=== PATIENT | female | born 1955 | race Caucasian/White ===

== ENCOUNTER 2016-12-19 17:01 | Outpatient (CLI) ==
[2015-07-23 10:23] VITALS: BMI 51.5
== END 2016-12-19 17:02 | disposition home or self-care (01) ==
LOC: AMBL 17:01
PROVIDERS: ATTEND Emergency Medicine
DX: R06.9 Unspecified abnormalities of breathing (principal); M54.5 Low back pain; R00.0 Tachycardia, unspecified; S09.90XA Unspecified injury of head, initial encounter; W19.XXXA Unspecified fall, initial encounter

== ENCOUNTER 2017-01-07 11:43 | Outpatient (CLI) ==
[2015-07-23 10:23] VITALS: BMI 51.5
[2017-01-07 12:54] LABS: BASOPHILS # (AUTO) 0.1 K/uL (0-0.2); BASOPHILS % (AUTO) 1.4 % (0.0-3.0); EOSINOPHILS # (AUTO) 0.2 K/ul (0.0-0.7); EOSINOPHILS % (AUTO) 2.7 % (0.0-7.0); HEMATOCRIT 36.9 % (37.0-47.0); HEMOGLOBIN 12.8 g/dl (12.0-16.0); IMMATURE GRANULOCYTE % (AUTO) 0.5 % (0.0-5.0); LYMPHOCYTES % (AUTO) 34.6 (10.0-50.0); MEAN CORPUSCULAR HEMOGLOBIN 31.6 pg (27.0-31.0); MEAN CORPUSCULAR HGB CONC 34.7 (31.8-35.4); MEAN CORPUSCULAR VOLUME 91.1 fl (81.0-99.0); MONOCYTES # (AUTO) 0.4 K/uL (0.4-2.0); MONOCYTES % (AUTO) 7.2 (0-10); NEUTROPHILS # (AUTO) 3.1 K/ul (2.0-6.9); NEUTROPHILS % (AUTO) 53.6; PLATELET COUNT 309 10^3/uL (140-440); RED BLOOD COUNT 4.05 10^6/ul (4.20-5.40); WHITE BLOOD COUNT 5.86 K/ul (4.6-10.2)
[2017-01-07 13:36] LABS: ALANINE AMINOTRANSFERASE 18 U/L (12-78); ALBUMIN 3.1 g/dL (3.4-5.0); ALBUMIN/GLOBULIN RATIO 0.79; ALKALINE PHOSPHATASE 169 U/L (53-141); ASPARTATE AMINO TRANSFERASE 14 U/L (15-37); BLOOD UREA NITROGEN 14 mg/dL (7-18); BUN/CREATININE RATIO 16.47; CALCIUM 9.9 mg/dL (8.2-10.2); CARBON DIOXIDE 23 mmol/L (23-31); CHLORIDE 98 mmol/L (98-107); CHOL/HDL RATIO 8.6 (4.5-5.5); CHOLESTEROL 360 mg/dL (0-200); CREATININE 0.85 mg/dL (0.60-1.30); GLUCOSE 352 mg/dL (82-115); HDL CHOLESTEROL 42 mg/dL (35-80); SODIUM 135 mmol/L (136-145)
[2017-01-07 13:38] LABS: TRIGLYCERIDES 1335 mg/dL (30-150)
== END 2017-01-07 11:44 | disposition home or self-care (01) ==
LOC: LAB 11:43
PROVIDERS: ATTEND Nurse Practitioner Family
DX: E11.9 Type 2 diabetes mellitus without complications (principal); E78.5 Hyperlipidemia, unspecified; F32.9 Major depressive disorder, single episode, unspecified; G89.29 Other chronic pain
CPT/HCPCS: 36415; 80053; 80061; 83036; 84443; 85025

== ENCOUNTER 2017-02-16 07:30 | Emergency (ER) ==
[2017-02-16 07:40] VITALS: BP 148/81; TEMP 98.2
--- NOTE | 2017-02-16 08:00 | ED.PDOC ---
General ED Provider: Dr. YEISON DOLAN JR Chief Complaint: Respiratory Complaint Stated Complaint: COUGH, DIFFICULTY HEARING, CHEST HEAVINESS, HEADACHE[End] symptoms for 1 month 98.2 83 18 98% 148/81 4/10 [ End ] STATES HAVING DIFFICULTY HEARING AND HAS PRESSURE IN CHEST.[ End ]left back pain and rales note fibromyalgia ill for 2 months not seen PMD for 3 months Time Seen by Physician: 08:00 Mode of Arrival: Walk-In Information Source: Patient Exam Limitations: No limitations Primary [facility] and Triage Documentation Reviewed and Agree: No Review of Systems - Review Of Systems Constitutional: Reports: No symptoms Eyes: Reports: No symptoms Ears, Nose, Mouth, Throat: Reports: Ear pain Respiratory: Reports: Cough (moderate uri symptoms, white sputum) Cardiac: Reports: Chest pain (heaviness) GI: Reports: No symptoms : Reports: No symptoms Musculoskeletal: Reports: No symptoms Skin: Reports: No symptoms Neurological: Reports: Headache Endocrine: Reports: No symptoms Hematologic/Lymphatic: Reports: No symptoms All Other Systems: Other Past Medical History - Past Medical History Previously Healthy: No Endocrine: Reports: DM 2, Dyslipidemia Cardiovascular: Reports: Hypertension Respiratory: Reports: None Hematological: Reports: None Gastrointestinal: Reports: Other (IBS) Genitourinary: Reports: None Neuro/Psych: Reports: None Musculoskeletal: Reports: Other Cancer: Reports: None Last Menstrual Period: N/A Other Pertinent Past Medical History: fibromyalgia, D&C 10yrs ago - Surgical History General Surgical History: Reports: Unknown - Family History Family History: Reports: Unknown - Social History Smoking Status: Never smoker Hx Substance Use: No Alcohol Screening: None Physical Exam - Physical Exam Appearance: Ill-appearing Ill-appearing: Mild Pain Distress: Mild Eyes: MONO, EOMI, Conjunctiva clear ENT: Ears normal, Nose normal, Oropharynx normal Neck: Supple Respiratory: Breath sounds diminished, Rhonchi Cardiovascular: RRR, Pulses normal, No rub, No murmur GI/: Soft, Nontender, No masses, Bowel sounds normal, No Organomegaly Musculoskeletal: Normal strength, ROM intact, No edema, No calf tenderness Skin: Warm, Dry, Normal color Neurological: Sensation intact, Motor intact, Reflexes intact, Cranial nerves intact, Alert, Oriented Psychiatric: Affect appropriate, Mood appropriate Critical Care Note - Critical Care Note Total Time (mins): 0 Course - Course Hematology/Chemistry: 02/16/17 09:10 02/16/17 09:10 Orders, Labs, Meds: Lab Review 02/16/17 09:10 WBC 6.86 RBC 3.84 L Hgb 12.1 Hct 35.3 L MCV 91.9 MCH 31.5 H MCHC 34.3 RDW Coeff of Kait 13.4 Plt Count 269 Immature Gran % (Auto) 0.6 Neut % (Auto) 56.4 Lymph % (Auto) 30.3 Lincoln % (Auto) 5.7 Eos % (Auto) 5.8 Baso % (Auto) 1.2 Immature Gran # (Auto) 0.0 Neut # 3.9 Lymph # 2.1 Lincoln # 0.4 Eos # 0.4 Baso # 0.1 Sodium 137 Potassium 4.0 Chloride 104 Carbon Dioxide 24 Anion Gap 13.0 BUN 17 Creatinine 0.88 Estimated GFR (MDRD) 65.00 BUN/Creatinine Ratio 19.31 Glucose 262 H Lactic Acid 16.8 Calcium 9.6 Total Bilirubin 0.62 AST 9 L ALT 18 Alkaline Phosphatase 120 Total Creatine Kinase 52 Troponin I < 0.0100 B-Natriuretic Peptide 23 Total Protein 6.9 Albumin 3.3 L Globulin 3.6 Albumin/Globulin Ratio 0.92 Procalcitonin < 0.05 Orders Category Date Time Status EKG-(ED ONLY) Stat CARDIO 02/16/17 08:45 Completed ED PRODUCTION CLOTH CUTTER APPLIED .ONCE EMERGENCY 02/16/17 08:45 Active ED IV/MEDIPORT/POWERPORT .ONCE EMERGENCY 02/16/17 08:45 Active B-TYPE NATRIURETIC PEPTIDE Stat LAB 02/16/17 09:10 Completed BLOOD CULTURE Stat LAB 02/16/17 09:10 Received CBC W/ AUTO DIFF Stat LAB 02/16/17 09:10 Completed COMPREHENSIVE METABOLIC PANEL Stat LAB 02/16/17 09:10 Completed CREATINE KINASE Stat LAB 02/16/17 09:10 Completed LACTIC ACID Stat LAB 02/16/17 09:10 Completed PROCALCITONIN Stat LAB 02/16/17 09:10 Completed TROPONIN I Stat LAB 02/16/17 09:10 Completed 0.9 % Sodium Chloride [Saline Flush] MEDS 02/16/17 08:45 Discontinued 1 syr IVF PRN PRN Insulin Regular, Human [Humulin R] MEDS 02/16/17 10:12 Discontinued 6 unit SUBCUT ONCE STA Methylprednisolone Sod Succ/Pf [Solu-Medrol 125 mg] MEDS 02/16/17 10:01 Discontinued 125 mg IM ONCE STA CHEST, 1V AP ONLY Stat RADS 02/16/17 08:45 Completed Medications Discontinued Medications Generic Name Dose Route Start Last Admin Trade Name Freq PRN Reason Stop Dose Admin Insulin Human Regular 6 unit 02/16/17 10:12 02/16/17 10:19 Humulin R SUBCUT 02/16/17 10:13 6 unit ONCE STA Administration Methylprednisolone Sodium Succinate 125 mg 02/16/17 10:01 02/16/17 10:11 Solu-Medrol 125 Mg IM 02/16/17 10:02 125 mg ONCE STA Administration Sodium Chloride 1 syr 02/16/17 08:45 Saline Flush IVF PRN PRN To flush IV Vital Signs: Temp Pulse Resp BP Pulse Ox 02/16/17 07:35 98.2 F 83 18 148/81 H 98 Departure - Departure Time of Disposition: 10:03 Disposition: HOME SELF-CARE Discharge Problem: URTI (acute upper respiratory infection) Instructions: Upper Respiratory Infection (ED) Condition: Good Pt referred to PMD for follow-up: Yes Additional Instructions: antibiotic until gone cough medication as needed return if fever over 101.0 or if chest pain recheck PMD one week sooner if not improving please take your insulin as directed-this is first priority- you must take care of your self in order to take care of others Prescriptions: Sulfamethoxazole/Trimethoprim [Bactrim Ds 800/160 mg] 1 tab PO Q12HR #14 tablet Guaifenesin/Codeine Phosphate [Robitussin AC Syrup] 10 ml PO Q6H PRN #240 ml PRN Reason: Cough Allergies/Adverse Reactions: Allergies latex Allergy (Mild, Verified 02/16/17 07:33) hives naproxen [From Naprosyn] Allergy (Verified 02/16/17 07:33) hives Home Medications: Ambulatory Orders Guaifenesin/Codeine Phosphate [Robitussin AC Syrup] 10 ml PO Q6H PRN #240 ml 10/23 Sulfamethoxazole/Trimethoprim [Bactrim Ds 800/160 mg] 1 tab PO Q12HR #14 tablet 02/16/17
[2017-02-16 08:30] VITALS: BMI 47.7
--- NOTE | 2017-02-16 09:03 | DI ---
EXAM: CHEST FRONTAL VIEW HISTORY: Chest pain. COMPARISON: 05/31/2011 FINDINGS: Heart size within normal limits. Limited exam secondary to patient position, portable te chnique and body habitus. Discoid density over the medial right base probably represents superimpos ed soft tissues. No gross evidence of consolidated pneumonia or vascular congestion. No acute bony finding. IMPRESSION: No obvious acute process.
[2017-02-16 09:28] LABS: BASOPHILS # (AUTO) 0.1 K/uL (0-0.2); BASOPHILS % (AUTO) 1.2 % (0.0-3.0); EOSINOPHILS # (AUTO) 0.4 K/ul (0.0-0.7); EOSINOPHILS % (AUTO) 5.8 % (0.0-7.0); HEMATOCRIT 35.3 % (37.0-47.0); HEMOGLOBIN 12.1 g/dl (12.0-16.0); IMMATURE GRANULOCYTE % (AUTO) 0.6 % (0.0-5.0); LYMPHOCYTES # (AUTO) 2.1 K/uL (0.60-3.4); LYMPHOCYTES % (AUTO) 30.3 (10.0-50.0); MEAN CORPUSCULAR HEMOGLOBIN 31.5 pg (27.0-31.0); MEAN CORPUSCULAR HGB CONC 34.3 (31.8-35.4); MEAN CORPUSCULAR VOLUME 91.9 fl (81.0-99.0); MONOCYTES # (AUTO) 0.4 K/uL (0.4-2.0); MONOCYTES % (AUTO) 5.7 (0-10); NEUTROPHILS # (AUTO) 3.9 K/ul (2.0-6.9); NEUTROPHILS % (AUTO) 56.4; PLATELET COUNT 269 10^3/uL (140-440); RED BLOOD COUNT 3.84 10^6/ul (4.20-5.40); WHITE BLOOD COUNT 6.86 K/ul (4.6-10.2)
[2017-02-16 09:55] LABS: ALANINE AMINOTRANSFERASE 18 U/L (12-78); ALBUMIN 3.3 g/dL (3.4-5.0); ALBUMIN/GLOBULIN RATIO 0.92; ALKALINE PHOSPHATASE 120 U/L (53-141); ASPARTATE AMINO TRANSFERASE 9 U/L (15-37); BILIRUBIN,TOTAL 0.62 mg/dL (0.00-1.20); BLOOD UREA NITROGEN 17 mg/dL (7-18); BUN/CREATININE RATIO 19.31; CALCIUM 9.6 mg/dL (8.2-10.2); CARBON DIOXIDE 24 mmol/L (23-31); CHLORIDE 104 mmol/L (98-107); CREATINE KINASE 52 U/L; CREATININE 0.88 mg/dL (0.60-1.30); GLUCOSE 262 mg/dL (82-115); SODIUM 137 mmol/L (136-145); TOTAL PROTEIN 6.9 g/dL (5.8-8.1)
[2017-02-16] MEDS ORDERED: SOLU-MEDROL 125 MG IM STA (10:01)
[2017-02-16] MEDS ORDERED: HUMULIN R SUBCUT STA (10:12)
== END 2017-02-16 10:28 | disposition home or self-care (01) ==
LOC: ED 07:30
DX: J06.9 Acute upper respiratory infection, unspecified (principal); R07.89 Other chest pain; E11.9 Type 2 diabetes mellitus without complications; I10 Essential (primary) hypertension
CPT/HCPCS: 36415; 80053; 82550; 83605; 83880; 84145; 84484; 85025; 87040; 93005; 93010; 96372; 99283

== ENCOUNTER 2017-04-13 17:47 | Outpatient (CLI) | END 2017-04-13 17:48 | disposition home or self-care (01) | LOC: AMBL 17:47 | PROVIDERS: ATTEND Internal Medicine | DX: R07.9 Chest pain, unspecified (principal); F41.9 Anxiety disorder, unspecified ==

== ENCOUNTER 2017-04-14 11:52 | Outpatient (CLI) ==
[2017-04-14 14:42] LABS: ALBUMIN 3.7 g/dL (3.4-5.0); ALBUMIN/GLOBULIN RATIO 0.95; ANION GAP 14.2; BILIRUBIN,TOTAL 0.7 mg/dL (0.00-1.20); BUN/CREATININE RATIO 17.58; CALCIUM 10.1 mg/dL (8.2-10.2); CHOL/HDL RATIO 4.5 (4.5-5.5); CREATININE 0.91 mg/dL (0.60-1.30); POTASSIUM 4.2 mmol/L (3.5-5.10); TOTAL PROTEIN 7.6 g/dL (5.8-8.1)
== END 2017-04-14 11:53 | disposition home or self-care (01) ==
LOC: LAB 11:52
PROVIDERS: ATTEND Nurse Practitioner Family
DX: E11.9 Type 2 diabetes mellitus without complications (principal); E78.5 Hyperlipidemia, unspecified
CPT/HCPCS: 36415; 80053; 80061; 83036

== ENCOUNTER 2017-09-21 12:50 | Outpatient (CLI) ==
[2017-09-21 12:57] LABS: BASOPHILS # (AUTO) 0.1 K/uL (0-0.2); EOSINOPHILS # (AUTO) 0.1 K/ul (0.0-0.7); EOSINOPHILS % (AUTO) 2.3 % (0.0-7.0); HEMATOCRIT 37.8 % (37.0-47.0); HEMOGLOBIN 13.2 g/dl (12.0-16.0); IMMATURE GRANULOCYTE % (AUTO) 0.5 % (0.0-5.0); LYMPHOCYTES # (AUTO) 1.9 K/uL (0.60-3.4); LYMPHOCYTES % (AUTO) 32.2 (10.0-50.0); MEAN CORPUSCULAR HGB CONC 34.9 (31.8-35.4); MEAN CORPUSCULAR VOLUME 91.5 fl (81.0-99.0); MONOCYTES # (AUTO) 0.3 K/uL (0.4-2.0); MONOCYTES % (AUTO) 4.7 (0-10); NEUTROPHILS # (AUTO) 3.4 K/ul (2.0-6.9); NEUTROPHILS % (AUTO) 59.3; PLATELET COUNT 338 10^3/uL (140-440); RED BLOOD COUNT 4.13 10^6/ul (4.20-5.40); WHITE BLOOD COUNT 5.75 K/ul (4.6-10.2)
[2017-09-21 13:13] LABS: ALBUMIN 3.6 g/dL (3.4-5.0); ALBUMIN/GLOBULIN RATIO 0.9; ANION GAP 13.8; BILIRUBIN,TOTAL 0.68 mg/dL (0.00-1.20); CALCIUM 10.3 mg/dL (8.2-10.2); CHOL/HDL RATIO 5.6 (4.5-5.5); CREATININE 0.92 mg/dL (0.60-1.30); POTASSIUM 3.8 mmol/L (3.5-5.10); TOTAL PROTEIN 7.6 g/dL (5.8-8.1)
== END 2017-09-21 12:51 | disposition home or self-care (01) ==
LOC: LAB 12:50
PROVIDERS: ATTEND Nurse Practitioner Family
DX: E78.1 Pure hyperglyceridemia (principal); E78.5 Hyperlipidemia, unspecified; E11.9 Type 2 diabetes mellitus without complications
CPT/HCPCS: 36415; 80053; 80061; 83036; 85025

== ENCOUNTER 2017-11-29 14:02 | Outpatient (CLI) | END 2017-11-29 14:03 | disposition home or self-care (01) | LOC: LAB 14:02 | PROVIDERS: ATTEND Nurse Practitioner Family | DX: E78.5 Hyperlipidemia, unspecified (principal); E78.1 Pure hyperglyceridemia; E11.9 Type 2 diabetes mellitus without complications | CPT/HCPCS: 36415; 80053; 80061; 83036; 85025 ==

== ENCOUNTER 2018-01-10 11:11 | Outpatient (CLI) ==
--- NOTE | 2018-01-11 10:15 | MRI ---
EXAM: Thoracic spine MRI without contrast. HISTORY: Thoracic spine pain. COMPARISON: Chest radiograph 05/31 2011. TECHNIQUE: Multiplanar, multisequence MR images were acquired of the thoracic spine without contrast . FINDINGS: The thoracic cord is without syrinx. Evaluation for abnormal cord signal is limited by de creased spatial and contrast resolution. The cord is anteriorly displaced and posteriorly flattened by a localized intradural extramedullary fluid collection in the dorsal thecal sac at T7. Canal diame ter is developmentally narrow. There is mild thoracolumbar scoliosis, convex right at T5-6 and conve x left at T11-12. There is mild lower thoracic kyphosis centered at T11-12 due to mild chronic anter ior wedging of the T11-L1 vertebra. There is also minor chronic anterior wedging of T7 vertebra with 2 mm left posterior cortical buckling and minor chronic anterior wedging of the T8-T10 vertebra. Th ere is desiccation of the thoracic intervertebral discs, mild endplate irregularity and chronic Schmo rl's nodes from T4 through T12. Bridging ventral and lateral osteophytes are present in the thoracic spine and these are greatest right laterally from T4-5 to T8-9 and at T10-11 and left laterally at T 6-7 and T9-10. These findings are suggestive of diffuse idiopathic skeletal hyperostosis or senile hy perostosis. The counting sagittal images demonstrate mild cervical degenerative spondylosis. There are no paravertebral masses. The partially visualized liver is elongated and measures at least 18 cm in length. The spleen and upper poles of both kidneys are unremarkable. T1-2: The intervertebral disc is normal. There is no central canal stenosis or foraminal stenosis. There is a small heterogeneous T1, bright T2 signal focus in the right superior T1 vertebra. This h as bright STIR signal and may represent an atypical benign intraosseous hemangioma. T2-3: The intervertebral disc is normal. T3-4: The intervertebral disc is normal. There is left greater than right facet hypertrophy without foraminal stenosis. T4-5. The intervertebral disc is normal. Bilateral facet hypertrophy is present. There is moderate right and mild to moderate left neural foraminal stenosis. T5-6: There is a minor dorsal spondylotic disc bulge that is asymmetric to the right which mildly ef faces the right anterior subarachnoid space. Bilateral facet hypertrophy is present and there is mil d left and moderate right neural foraminal stenosis. T6-7: There is a dorsal spondylotic disc bulge that mildly indents the thoracic cord which is anteri vanessa displaced in the thecal sac. Mild left facet hypertrophy is present. There is mild right murtaza inal stenosis. There is no central canal stenosis. AP diameter of the thecal sac is 10.2 mm. T7-8: There is a chronic mild anterior wedge compression deformity of T7 with 2 mm retropulsion of t he left paramidline posterior cortex from the mid vertebral level to the inferior endplate and T7-8 l evel. This moderately indents the left paramidline ventral cord which is anteriorly displaced and po steriorly flattened by a localized dorsal intradural extramedullary fluid collection. There is no ce ntral canal stenosis or foraminal stenosis. T8-9: There is a minor dorsal spondylotic ridge that is asymmetric to the right that minimally effac es the right lateral recess. Left facet hypertrophy is present. There is mild right and mild to mod erate left neural foraminal stenosis. T9-10: There is a minor spondylotic disc bulge and mild left foraminal stenosis. T10-11: There is a minor right posterior disc osteophyte complex associated with mild right cord fla ttening and right facet hypertrophy. There is no central canal stenosis or foraminal stenosis. T11-12: There is a dorsal spondylotic ridge that effaces the ventral thecal sac and is associated wi th mild cord flattening. There is no central canal stenosis. AP diameter of the thecal sac is 11.6 mm. T12-L1: There is a minor posterior disc bulge. There is no central canal stenosis or foraminal sten osis. IMPRESSION: 1. Mild lower thoracic kyphosis centered at T11-12 due to mild chronic anterior wedging of the T11 t hrough L1 vertebra. No acute compression fractures. 2. Minor chronic anterior wedging T7 with 2 mm left posterior cortical buckling that moderately inde nts the left ventral cord which is anteriorly displaced and posteriorly flattened by a localized dors al intradural extramedullary fluid collection. These findings may reflect sequela from previous traum a and the anterior cord displacement may be due to an anterior cord herniation or arachnoid web. An intradural extramedullary arachnoid cyst is considered less likely. 3. Mild thoracic degenerative spondylosis with endplate changes, Schmorl's nodes and bridging carrie lateral endplate osteophytes. This is suggestive of diffuse idiopathic skeletal hyperostosis or ernee le hyperostosis. 4. No thoracic disc herniations or central canal stenosis.
== END 2018-01-10 11:12 | disposition home or self-care (01) ==
LOC: RAD 11:11
PROVIDERS: ATTEND Nurse Practitioner Family
DX: M54.6 Pain in thoracic spine (principal); W19.XXXA Unspecified fall, initial encounter

== ENCOUNTER 2018-01-14 10:18 | Outpatient (CLI) | END 2018-01-14 10:19 | disposition short-term general hospital (02) | LOC: AMBL 10:18 | PROVIDERS: ATTEND Emergency Medicine | DX: S01.81XA Laceration without foreign body of other part of head, initial encounter (principal); M25.551 Pain in right hip; M25.562 Pain in left knee; S81.002A Unspecified open wound, left knee, initial encounter; W01.0XXA Fall on same level from slipping, tripping and stumbling without subsequent striking against object, initial encounter ==

== ENCOUNTER 2018-03-06 07:05 | Outpatient (CLI) ==
--- NOTE | 2018-03-06 10:16 | MRI ---
EXAM: Brain MRI with and without contrast. HISTORY: Meningioma. COMPARISON: Brain MRI 09/12/2013. TECHNIQUE: Multiplanar, multisequence MR images were acquired of the brain before and after administ ration of intravenous contrast. FINDINGS: The midline structures are central and the craniocervical junction is unremarkable. There is mild enlargement of the lateral and third ventricles and sylvian fissures and mild prominence of the sulci consistent with age related involutional changes. There is an intermediate T1 and T2 signal 8.2 mm AP by 8.3 mm TX by 4.8 mm CC enhancing extra-axial mass overlying the anterior left frontal l obe at the convexity. This is most consistent with a meningioma which indents the anterior left fron swetha lobe without edema. There is no restricted ricted diffusion to suggest acute hypoperfusion or infarction. There is a thi n band of periventricular T2/FLAIR hyperintensity and small T2 / FLAIR hyperintensities are present i n the supratentorial white matter, both thalami and momo compatible with moderate supratentorial and minor pontine chronic ischemic small vessel disease. There is no abnormal dark gradient echo signal. A chronic lacuna is present in the anterior left basal ganglia and a chronic lacuna is present in t he right posterior internal capsule at the site of the previously noted infarct on the 09/12/2013 bra in MRI. A chronic lacuna or dilated perivascular spaces present in the dorsal right thalamus and ther e is a dilated perivascular space in the dorsal left thalamus. After administration of gadolinium, n o enhancing masses are identified in the brain parenchyma. The corpus callosum is normal in size and configuration. The pituitary gland is low normal size with a concave anterior superior border. The infundibulum is midline. There are no intraorbital masses. Hyperostosis frontalis interna is present. Paranasal sinuses, mid dle ears of mastoid air cells are clear. There is no abnormal contrast enhancement in the internal a uditory canals or labyrinthine structures. Flow voids are present in the major intracranial arteries and dural venous sinuses. IMPRESSION: 1. 8.2 mm x 0.3 mm 4.8 mm left frontal convexity meningioma. 2. Age related involutional changes and moderate supratentorial and minor pontine chronic ischemic s mall vessel disease. 3. Chronic lacunes anterior left basal ganglia and posterior right internal capsule. 4. No intracranial hemorrhage or acute cerebral infarct.
== END 2018-03-06 07:06 | disposition home or self-care (01) ==
LOC: RAD 07:05
PROVIDERS: ATTEND Neurological Surgery
DX: D32.9 Benign neoplasm of meninges, unspecified (principal); M54.5 Low back pain; G89.29 Other chronic pain
CPT/HCPCS: 36415; 80048

== ENCOUNTER 2018-03-13 08:54 | Outpatient (CLI) | END 2018-03-13 08:55 | LOC: AMBL 08:54 | PROVIDERS: ATTEND Internal Medicine | DX: Z74.2 Need for assistance at home and no other household member able to render care (principal); W19.XXXA Unspecified fall, initial encounter ==

== ENCOUNTER 2018-03-13 13:49 | Outpatient (CLI) | END 2018-03-13 13:50 | LOC: AMBL 13:49 | PROVIDERS: ATTEND Internal Medicine | DX: R53.1 Weakness (principal); R52 Pain, unspecified; R29.6 Repeated falls; S00.11XD Contusion of right eyelid and periocular area, subsequent encounter; S62.101D Fracture of unspecified carpal bone, right wrist, subsequent encounter for fracture with routine healing; W19.XXXA Unspecified fall, initial encounter ==

== ENCOUNTER 2018-06-27 10:38 | Outpatient (CLI) | END 2018-06-27 10:39 | disposition home or self-care (01) | LOC: RHC-LAB 10:38 | PROVIDERS: ATTEND Nurse Practitioner Family | DX: E11.9 Type 2 diabetes mellitus without complications (principal); F41.8 Other specified anxiety disorders; E78.5 Hyperlipidemia, unspecified; E78.1 Pure hyperglyceridemia | CPT/HCPCS: 36415; 80053; 80061; 83037; 84443; 85025 ==

== ENCOUNTER 2018-12-05 08:10 | Outpatient (CLI) | END 2018-12-05 08:11 | disposition home or self-care (01) | LOC: RHC-LAB 08:10 | PROVIDERS: ATTEND Nurse Practitioner Family | DX: E11.9 Type 2 diabetes mellitus without complications (principal); E78.5 Hyperlipidemia, unspecified; E78.1 Pure hyperglyceridemia; K58.9 Irritable bowel syndrome, unspecified | CPT/HCPCS: 36415; 80053; 80061; 83036; 85025 ==

== ENCOUNTER 2019-02-27 11:02 | Outpatient (CLI) | END 2019-02-27 11:03 | disposition home or self-care (01) | LOC: RHC-LAB 11:02 | PROVIDERS: ATTEND Nurse Practitioner Family | DX: E11.9 Type 2 diabetes mellitus without complications (principal); E78.5 Hyperlipidemia, unspecified | CPT/HCPCS: 36415; 80053; 80061; 83036 ==

== ENCOUNTER 2022-07-05 08:53 | Inpatient (IN) ==
[2022-07-05 09:13] VITALS: BMI 46.8
--- NOTE | 2022-07-05 09:42 | ED.PDOC ---
General ED Provider: Dr. JOSH LANE Chief Complaint: Hip Pain/Injury Stated Complaint: Both hips hurting from recent falls. Says she is unable to bear weight. Lives alone. T2DM. Obesity. Time Seen by Provider: 07/05/22 09:10 Mode of Arrival: Ambulance Information Source: Patient and EMT Exam Limitations: No limitations Primary Care Provider: DUSTIN HAYS APRN Nursing and Triage Documentation Reviewed and Agree: Yes Does patient meet sepsis criteria?: No System Inflammatory Response Syndrome: Not Applicable Sepsis Protocol: For patient's 13 years and over: Temp is 96.8 and below OR 101 and greater Pulse >90 BPM Resp >20/minute Acutely Altered Mental Status Are patient's symptoms suggestive of a new infection, such as: -Pneumonia -Skin, Soft Tissue -Endocarditis -UTI -Bone, Joint Infection -Implantable Device -Acute Abdominal Infection -Wound Infection -Meningitis -Blood Stream Catheter Infection -Unknown Musculoskeletal Complaint Exam Hip/Pelvis Complaint/Exam Location of Pain: Reports Right, Left and Pelvis Mechanism of Injury: Reports Trauma Onset/Duration: at least two falls recently, including today Symptoms Are: Still present Initial Severity: Moderate Current Severity: Moderate Location: Reports Diffuse Character: Reports Dull and Aching Aggravating: Reports Movement and Weight bearing Alleviating: Reports Rest Associated Signs and Symptoms: Denies Swelling, Redness, Bruising, Fever, Weakness, Dizziness, Syncope, Abdominal pain or Knee pain Related History: Reports Similar episode Able to Bear Weight: No Septic Arthritis Risk Factors: Reports None Related Surgical History: Reports None Tenderness: Present Right and Left Range of Motion Limited In: Present Flexion, Extension, Abduction, Adduction, Internal rotation and External rotation NV Bundle Intact Distal to Injury: Yes Review of Systems Review Of Systems Constitutional: Reports No symptoms Eyes: Reports No symptoms Ears, Nose, Mouth, Throat: Reports No symptoms Respiratory: Reports No symptoms Cardiac: Reports No symptoms GI: Reports No symptoms : Reports No symptoms Musculoskeletal: Reports No symptoms Skin: Reports No symptoms Neurological: Reports No symptoms Endocrine: Reports No symptoms Hematologic/Lymphatic: Reports No symptoms All Other Systems: Reviewed and Negative [facility] Medical History Abdominal pain Abnormal TSH Back pain with right-sided radiculopathy Bulging lumbar disc Callus of heel Chronic back pain Chronic low back pain with right-sided sciatica Degeneration of intervertebral disc of lumbar region with osteophyte of lumbar vertebra Depression Diabetes mellitus type 2, insulin dependent Encounter for diabetic foot exam Fall Hyperlipidemia Hypertension Hypertriglyceridemia Ligamentum flavum hypertrophy Lumbar spondylolysis Noncompliance with diet and medication regimen Peripheral edema Personal history of musculoskeletal disorder Pneumococcal vaccination declined Referral to psychiatrist declined by patient Sore throat URI (upper respiratory infection) Vomiting Family History Mother Chronic alcohol abuse Cirrhosis Drug abuse and dependence FATHER Chronic alcohol abuse Cirrhosis Drug abuse and dependence Social History (Updated 07/05/22 @ 17:15 by ALINE ESCOBAR RN) Smoking and tobacco status: Never smoker Second hand smoke exposure: Yes Alcohol intake: never Substance use type: does not use Angie/buddhism: None Special angie needs: No Agree to transfusion: No Adopted: No Caregiver/support person: Yes Household members: none Housing: apartment Lives independently: Yes Highest education level completed: high school graduate Financial difficulty paying for basics: not applicable service: No Current occupational status: disabled Current occupational exposures/hazards: No Pets and animals: Yes Leisure activites: art, reading and other History of recent travel: No Sexually active: No Do you think of yourself as: straight/heterosexual Current gender identity: female Seatbelt use: always Helmet use: No Drives intoxicated or rides with intoxicated customer service driver: No Water heater temperature set < 120 degrees: Yes Working smoke detector in home: Yes Fire extinguisher in home: No Carbon monoxide detector in home: Yes Firearms in home: No Surgical History History of gynecological procedure History of musculoskeletal system surgery Female Reproductive History Menstrual Hx Hysterectomy: No Hx Tubal Ligation: No Physical Exam Physical Exam Appearance: Reports Obese Ill-appearing: None Pain Distress: Moderate Eyes: Reports MONO ENT: Reports Oropharynx normal Neck: Supple Respiratory: Reports Airway patent and Breath sounds clear Cardiovascular: Reports RRR and Pulses normal GI/: Reports Soft and Nontender Musculoskeletal: Reports Limited ROM and Limited strength Skin: Reports Warm and Dry Neurological: Reports Sensation intact and Motor intact Psychiatric: Reports Affect appropriate and Mood appropriate Interpretation Radiology Interpretation Radiology Interpretation By: Radiologist Radiology Results: No acute changes Exam Interpreted: CT Scan Xray Comments: CT pelvis - no fx, DDD Critical Care Note Critical Care Note Total Critical Care Time (mins): 0 Course Course Hematology/Chemistry: 07/05/22 09:20 07/05/22 09:20 Orders, Labs, Meds: Lab Review 07/05/22 07/05/22 07/05/22 09:20 09:20 09:20 WBC 7.37 RBC 3.35 L Hgb 10.4 L Hct 31.2 L MCV 93.1 MCH 31.0 MCHC 33.3 RDW Coeff of Kait 13.9 Plt Count 312 Immature Gran % (Auto) 1.1 Neut % (Auto) 60.3 Lymph % (Auto) 25.4 Hardin % (Auto) 7.2 Eos % (Auto) 4.9 Baso % (Auto) 1.1 Neut # (Auto) 4.5 Lymph # (Auto) 1.9 Hardin # (Auto) 0.5 Eos # (Auto) 0.4 Baso # (Auto) 0.1 Immature Gran # (Auto) 0.1 Sodium 134.2 L Potassium 4.74 Chloride 99.5 Carbon Dioxide 27.2 Anion Gap 12.24 BUN 25.7 H Creatinine 1.28 Estimated GFR (MDRD) 42.00 BUN/Creatinine Ratio 20.07 Glucose 322.6 H Calcium 10.31 H Total Bilirubin 1.09 AST 24.5 ALT 23.7 Alkaline Phosphatase 127.4 Total Protein 7.75 Albumin 4.23 Globulin 3.52 Albumin/Globulin Ratio 1.20 SARS CoV-2 RNA Rapid MARGARET Negative Orders Category Date Time Status ACTIVITY .Up With Assistance CARE 07/05/22 12:45 Active CASE MANAGEMENT CONSULT ONCE CARE 07/05/22 12:46 Completed GIVE HS SNACK 2100 CARE 07/05/22 12:47 Active INTAKE & OUTPUT Q8HR CARE 07/05/22 12:45 Active IP: INSERT SALINE LOCK ONCE CARE 07/05/22 12:45 Active VITAL SIGNS Q8HR CARE 07/05/22 12:45 Active ADA 1800 RHETT. DIET DIETARY 07/05/22 Dinner Ordered HS SNACK DIETARY 07/05/22 Dinner Ordered CBC W/ AUTO DIFF Stat LAB 07/05/22 09:20 Completed COMPREHENSIVE METABOLIC PANEL Stat LAB 07/05/22 09:20 Completed SARS COV-2 RNA RAPID MARGARET Stat LAB 07/05/22 09:20 Completed URINALYSIS C & S IF INDICATED Stat LAB 07/05/22 16:00 Completed Hydrocodone Bit/Acetaminophen [[place] 10-325] MEDS 07/05/22 12:47 Active 1 tab PO QID PRN Hydromorphone HCl [Dilaudid 1 mg/ml Syringe] MEDS 07/05/22 10:35 Discontinued 1 mg IVP ONCE ONE Hydromorphone HCl [Dilaudid 1 mg/ml Syringe] MEDS 07/05/22 13:24 Active 1 mg IVP Q6HR PRN Ondansetron HCl/Pf [Zofran 4 mg/2 ml] MEDS 07/05/22 10:34 Discontinued 4 mg IVP ONCE ONE Ondansetron HCl/Pf [Zofran 4 mg/2 ml] MEDS 07/05/22 13:24 Active 4 mg IVP Q6H PRN CT PELVIS W/O CONTRAST Stat RADS 07/05/22 10:15 Completed HIP,RIGHT 2VWS W OR W/O PELVIS Stat RADS 07/05/22 09:29 Completed Medications Generic Name Dose Route Start Last Admin Trade Name Freq PRN Reason Stop Dose Admin Hydrocodone Bitart/Acetaminophen 1 tab 07/05/22 12:47 07/06/22 03:15 Hydrocodone Bit/Acetaminophen 10/325 Mg Tablet PO 1 tab QID PRN Administration Pain Atorvastatin Calcium 80 mg 07/05/22 21:00 07/05/22 20:34 Atorvastatin Calcium 20 Mg Tablet PO 80 mg BEDTIME MICHELE Administration Cyclobenzaprine HCl 5 - 10 mg 07/05/22 16:08 Cyclobenzaprine Hcl 10 Mg Tablet PO TID PRN MUSCLE SPASMS Duloxetine HCl 20 mg 07/05/22 21:00 07/05/22 21:05 Duloxetine Hcl 20 Mg Capsule. PO Not Given BID MICHELE Fenofibrate 160 mg 07/06/22 09:00 Fenofibrate 160 Mg Tablet PO DAILY MICHELE Ferrous Sulfate 324 mg 07/06/22 09:00 Ferrous Sulfate 324 Mg Tablet. PO DAILY MICHELE Fluticasone Propionate 1 spray 07/05/22 21:00 07/05/22 21:06 Fluticasone Propionate 16 Gm Nasal [place] JAMAL Not Given Q12HR MICHELE Hydrochlorothiazide 25 mg 07/06/22 09:00 Hydrochlorothiazide 25 Mg Tablet PO DAILY MICHELE Hydromorphone HCl 1 mg 07/05/22 13:24 07/05/22 16:43 Hydromorphone Hcl 1 Mg/Ml Syringe IVP 1 mg Q6HR PRN Administration Pain Insulin Glargine 40 unit 07/05/22 17:00 07/05/22 17:41 Insulin Glargine,Hum.Rec.Anlog 100 Units/Ml SUBCUT 40 unit QPM MICHELE Administration Insulin Glargine 50 unit 07/06/22 09:00 Insulin Glargine,Hum.Rec.Anlog 100 Units/Ml SUBCUT DAILY [facility] Insulin Human Regular 0 unit 07/05/22 16:27 07/06/22 05:48 Insulin Regular, Human 100 Unit/Ml (3ml) Vial SUBCUT 4 unit PRN PRN Administration Hyperglycemia Protocol Lisinopril 20 mg 07/06/22 09:00 Lisinopril 10 Mg Tablet PO DAILY [facility] Loratadine 10 mg 07/05/22 16:30 Loratadine 10 Mg Tablet PO DAILY PRN Allergy Symptoms Meloxicam 15 mg 07/06/22 08:30 Meloxicam 7.5 Mg Tablet PO DAILYWM [facility] Metformin HCl 500 mg 07/05/22 17:00 07/05/22 17:08 Metformin Hcl 500 Mg Tablet PO 500 mg BIDWM [facility] Administration Metoprolol Succinate 25 mg 07/06/22 09:00 Metoprolol Succinate 25 Mg Tab.Er.24h PO DAILY [facility] Multivitamins 1 tab 07/06/22 09:00 Multivitamin 1 Tab PO DAILY [facility] Omeprazole 40 mg 07/06/22 06:30 07/06/22 05:49 Omeprazole 20 Mg Capsule.Dr PO 40 mg QDAC [facility] Administration Ondansetron HCl 4 mg 07/05/22 13:24 Ondansetron Hcl/Pf 4 Mg/2 Ml Sdv IVP Q6H PRN Nausea / Vomiting Discontinued Medications Generic Name Dose Route Start Last Admin Trade Name Freq PRN Reason Stop Dose Admin Hydromorphone HCl 1 mg 07/05/22 10:35 07/05/22 10:46 Hydromorphone Hcl 1 Mg/Ml Syringe IVP 07/05/22 10:36 1 mg ONCE ONE Administration Ondansetron HCl 4 mg 07/05/22 10:34 07/05/22 10:46 Ondansetron Hcl/Pf 4 Mg/2 Ml Sdv IVP 07/05/22 10:35 4 mg ONCE ONE Administration Vital Signs: Temp Pulse Resp BP Pulse Ox 07/05/22 09:07 97.8 F 72 18 129/66 97 Discharge Plan Discharge Patient Disposition: ADMITTED INPATIENT Discharge Problem: Intractable pain Did you review [place] APPLIANCE ADJUSTER?: Not Applicable ED Provider: JOSH LANE Condition: Fair Physician Progress Note: No fx, pain prevents weight bearing, will admit for IV pain med, PT.]
--- NOTE | 2022-07-05 10:09 | DI ---
EXAM: Radiographs, right hip and pelvis HISTORY: Right hip shortening, rotation following a fall. COMPARISON: None. TECHNIQUE: Three views. FINDINGS: Bone mineralization is normal. There is no acute fracture or dislocation. There is modera te spurring off both greater trochanters. There is probable chronic tug lesion of the proximal femor al diaphysis. No osseous destruction. Soft tissues unremarkable save for calcified uterine fibroid. IMPRESSION: No acute fracture.
[2022-07-05] MEDS ORDERED: ZOFRAN 4 MG/2 ML IVP ONE (10:34)
[2022-07-05] MEDS ORDERED: DILAUDID 1 MG/ML SYRINGE IVP ONE (10:35)
[2022-07-05 10:50] LABS: BASOPHILS # (AUTO) 0.1 K/uL (0-0.2); BASOPHILS % (AUTO) 1.1 % (0.0-3.0); EOSINOPHILS # (AUTO) 0.4 K/ul (0.0-0.7); EOSINOPHILS % (AUTO) 4.9 % (0.0-7.0); HEMATOCRIT 31.2 % (37.0-47.0); HEMOGLOBIN 10.4 g/dl (12.0-16.0); IMMATURE GRANULOCYTE # (AUTO) 0.1 (0.0-1.0); IMMATURE GRANULOCYTE % (AUTO) 1.1 % (0.0-5.0); LYMPHOCYTES # (AUTO) 1.9 K/uL (0.60-3.4); LYMPHOCYTES % (AUTO) 25.4 (10.0-50.0); MEAN CORPUSCULAR HGB CONC 33.3 (31.8-35.4); MEAN CORPUSCULAR VOLUME 93.1 fl (81.0-99.0); MONOCYTES # (AUTO) 0.5 K/uL (0.4-2.0); MONOCYTES % (AUTO) 7.2 (0-10); NEUTROPHILS # (AUTO) 4.5 K/ul (2.0-6.9); NEUTROPHILS % (AUTO) 60.3 % (42.2-75.2); PLATELET COUNT 312 10^3/uL (140-440); RDW COEFFICIENT OF VARIATION 13.9 % (11.6-14.8); RED BLOOD COUNT 3.35 10^6/ul (4.20-5.40); WHITE BLOOD COUNT 7.37 K/ul (4.6-10.2)
[2022-07-05 10:56] LABS: ALANINE AMINOTRANSFERASE 23.7 U/L (0-35); ALBUMIN 4.23 g/dL (3.5-5.0); ALKALINE PHOSPHATASE 127.4 U/L (53-141); ASPARTATE AMINO TRANSFERASE 24.5 U/L (14-36); BILIRUBIN,TOTAL 1.09 mg/dL (0.2-1.3); BLOOD UREA NITROGEN 25.7 mg/dL (7-17); CALCIUM 10.31 mg/dL (8.4-10.2); CARBON DIOXIDE 27.2 mmol/L (22-30.0); CHLORIDE 99.5 mmol/L (98-107); CREATININE 1.28 mg/dL (0.60-1.30); GLUCOSE 322.6 mg/dL (74-106); POTASSIUM 4.74 mmol/L (3.5-5.1); SODIUM 134.2 mmol/L (134.5-145); TOTAL PROTEIN 7.75 g/dL (6.3-8.2)
--- NOTE | 2022-07-05 11:24 | CT ---
EXAM: CT of the pelvis without contrast TECHNIQUE: CT of the pelvis was performed without IV contrast. Multiplanar reformats were made. HISTORY: Fall, bilateral hip pain, right worse than left. No fracture is visible on radiographs. COMPARISON: Radiographs 07/05/2022. FINDINGS: No acute fracture, dislocation, or diastases. Multifocal enthesophytes at the pelvis and greater trochanters. Heterotopic bone formation or exosto sis in the proximal femoral diaphysis. Calcified, degenerative uterine leiomyoma. Small fat containing bilateral inguinal hernias. IMPRESSION: 1. No acute fracture. All CT scans are performed using dose optimization techniques as appropriate to the performed exam an d include at least one of the following: Automated exposure control, adjustment of the mA and/or kV according t o size, and the use of iterative reconstruction technique.
[2022-07-05] MEDS ORDERED: ZOFRAN 4 MG/2 ML IVP PRN (13:24)
[2022-07-05] MEDS ORDERED: NON-FORMULARY MEDICATION (Cetirizine [Allergy Relief (Cetirizine)] 10 mg tablet) PO PRN (16:08)
[2022-07-05] MEDS ORDERED: FLEXERIL PO PRN (16:08)
[2022-07-05] MEDS ORDERED: NON-FORMULARY MEDICATION (Ferrous Sulfate 325 mg (65 mg iron) tablet) PO SCH (16:15)
[2022-07-05] MEDS ORDERED: CLARITIN PO PRN (16:30)
[2022-07-05 16:35] LABS: BILIRUBIN,URINE Negative (NEGATIVE); CLARITY,URINE Clear (CLEAR); COLOR,URINE Yellow (YELLOW); KETONES,URINE Negative (NEGATIVE); LEUKOCYTE ESTERASE ,URINE Negative (NEGATIVE); NITRITE,URINE Negative (NEGATIVE); PH,URINE 5.5 (5-9); PROTEIN,URINE Negative (NEGATIVE); URINE, BLOOD Negative (NEGATIVE)
[2022-07-05 16:37] LABS: GLUCOSE, URINE (UA) 3+ (NEGATIVE)
[2022-07-05] MEDS: DILAUDID 1 MG/ML SYRINGE IVP PRN (16:43)
[2022-07-05] MEDS ORDERED: LANTUS SUBCUT SCH (17:00)
[2022-07-05] MEDS: HUMULIN R SUBCUT PRN ×2 (17:08→21:03)
[2022-07-05] MEDS: GLUCOPHAGE PO SCH (17:08)
[2022-07-05] MEDS: LANTUS SUBCUT SCH (17:41)
[2022-07-05] MEDS: LIPITOR PO SCH (20:34)
[2022-07-05] MEDS: FLONASE NAS SCH ×2 (20:34→21:06)
[2022-07-05] MEDS: CYMBALTA PO SCH (21:05)
[2022-07-06] MEDS: NORCO 10-325 PO PRN ×2 (03:15→11:17)
[2022-07-06] MEDS: HUMULIN R SUBCUT PRN ×4 (05:48→20:24)
[2022-07-06] MEDS: PRILOSEC PO SCH (05:49)
[2022-07-06] MEDS ORDERED: MOBIC PO SCH (08:30)
[2022-07-06] MEDS ORDERED: NON-FORMULARY MEDICATION (Multivitamin tablet) PO SCH (09:00)
[2022-07-06] MEDS ORDERED: HYDROCHLOROTHIAZIDE PO SCH (09:00)
[2022-07-06] MEDS: GLUCOPHAGE PO SCH ×2 (09:03→17:05)
[2022-07-06] MEDS: TRIGLIDE PO SCH (09:04)
[2022-07-06] MEDS: MULTIVITAMIN TABLET PO SCH (09:05)
[2022-07-06] MEDS: FERROUS SULFATE PO SCH (09:05)
[2022-07-06] MEDS: TOPROL XL PO SCH (09:06)
[2022-07-06] MEDS: ZESTRIL PO SCH (09:07)
[2022-07-06] MEDS: FLONASE NAS SCH ×2 (09:09→20:19)
[2022-07-06] MEDS: LANTUS SUBCUT SCH ×2 (09:09→17:03)
--- NOTE | 2022-07-06 12:00 | RS.PTINEVL ---
Subjective - Patient information Date of Evaluation: 07/06/22 Date of Arrival on Unit: 07/05/22 Admitted From:: Home Diagnosis: falls, hip pain, gait difficulty Usual Living Arrangement: Alone Living Arrangement Comments: has help at home 4 days a week Home Environment: Apartment, Level/No stairs Medical History: Hypertension, Diabetes, Arthritis Medical History Comments:: depression, anxiety, degerative disc, chronic LBP, fibromyalgia Surgical History Comments:: CTR Medications: see chart Subjective Information/ Patient Comments:: pt states she suffered 3 falls in 24 hours. She states that her RLE is numb and that she has pain in B hips. pt states she is very afraid of falling. - Level of function Prior to this admission, the patient could do the following:: Independent Selfcare, Independent ADL's, Independent Ambulation Abilities prior to this admission: pt amb without AD prior to falls, had help at home to help with cleaning but she was independent with her personal care Current Level of Function: Partially Dependent Current Equipment Used at Home: has a rwx but did not have to use prior to falls, glucometer Pain Assessement - Location B hips Description: Sharp, Aching Intensity: 4 Pain Behavior: Crying, Guarding, Facial Grimacing Pain Aggravating Factors: Changing Position, Standing, Walking Pain Alleviating Factors: Medication Interventions - Objective Patient Orientation: Person, Place, Situation Current Interventions: IV's Observation: pt with swelling BLE, with multiple areas that appear like rash vs bites on LE's Range of Motion - ROM Right Upper Extremity AROM: WFL's Left Upper Extremity AROM: WFL's Right Lower Extremity AROM: Slight limitation Left Lower Extremity AROM: Slight limitation Comments:: B hip ROM slight limited due to pain Muscle Strength - Muscle Strength Right Upper Extremity Strength: Mild Weakness (grossly 4/5) Left Upper Extremity Strength: Mild Weakness (grossly 4/5) Right Lower Extremity Strength: Mild Weakness (hip flex 3-/5, knee flex/ext 4- /5, ankle DF/PF 4/5) Left Lower Extremity Strength: Mild Weakness (hip flex 3-/5, knee flex/ext 4-/5, ankle DF/PF 4/5) Sensation - Sensation Right Upper Extremity Sensation: Intact/Normal Left Upper Extremity Sensation: Intact/Normal Right Lower Extremity Sensation: Impaired (pt reports n/t in RLE. pt is able to feel light touch but is impaired.) Left Lower Extremity Sensation: Intact/Normal Palpation Palpation Findings: Tenderness (LLE tender to touch) Balance - Sitting Balance and Reactions Static Sitting Balance: Fair Dynamic Sitting Balance: Fair (fair-) - Standing Balance and Reactions Static Standing Balance: Poor Dynamic Standing Balance: Poor - Comments Balance Assessment Comments: pt able to maintain sitting balance with UE support without challenges. Functional Mobility - Bed Mobility Rolling R/L: Mod Assist, 1 person assist Supine to Sit: Mod Assist, 1 person assist - Transfers Sit to Stand: Mod Assist, 2 person assist Stand to Sit: Mod Assist, 2 person assist Stand Pivot Transfers: Mod Assist, 2 person assist Comments:: upon initial sit to stand pt panicked and sat back on bed, after discussion with therapists pt stood mod x 2 and was able to take 1-2 steps to bedside commode. pt sat on BSC and was able to urinate. Stood with min to mod x 2 from BSC and took 2 steps to recliner with min to mod x 2. pt with difficulty advancing LLE. - Safety Awareness Safety Awareness: Fair VIVIANA INDEX SCORE: n/a Treatment time - Time with patient Length of Evaluation: 21 Total treatment time: 25 Patient Education - Education Patient Education: Education of Plan of Care Teaching Recipient: Patient Teaching Methods: Discussion (discussion with patient regarding importance of listening to therapist's instructions and not panicking because she may ) Assessment - Assessment Problem List:: Decreased level of function, Requires training/education, Decreased safety/Risk of falls, Weakness, Pain limits previous level of function Rehab Potential: Good Further Therapy Indicated?: Yes Candidate for Swing Bed for Therapy Services?: Feel pt may require longer term rehab than swing bed offers. Evaluation Complexity: HISTORY: Medium, EXAM OF BODY SYSTEMS: Medium, CLINICAL PRESENTATION: Medium, CLINICAL DECISION MAKING: Medium Patient's Goal(s): Get stronger, decrease pain and be able to return home. Short Term Goals GOAL #1: pt demonstrate independent with rolling and scooting in bed. Goal to be met by: 07/09/22 GOAL #2: Transfer sup to/from sit min x 1 Goal to be met by: 07/09/22 GOAL #3: Transfer sit to/from stand min x 1 to 2. Goal to be met by: 07/09/22 GOAL #4: pt amb with rwx 40ft with min x 1-2. Goal to be met by: 07/09/22 GOAL #5: Improve dyn sitting balance fair. Goal to be met by: 07/09/22 Shelter Goals GOAL #1: Transfer sup to/from sit CGA, sit to/from stand min x 1 Goal to be met by: 07/13/22 GOAL #2: pt amb 80ft with rwx with min x 1. Goal to be met by: 07/13/22 GOAL #3: Improve strength BLE 4- to 4/5 Goal to be met by: 07/13/22 Plan Plan of Care: Therapeutic EX, Therapeutic Activity Other:: gait training Frequency of Treatment: 1-2 X day, as tolerated Duration of Treatment: 6 days Anticipated Discharge Destination: undetermined Treatment Diagnosis (ICD 10 Codes): R 26.2 difficulty walking. R 26.81 impaired balance. M62.81 weakness. BLE pain Has the Physician been added for Co-signature?: Yes
--- NOTE | 2022-07-06 15:02 | PCM.PROG ---
Subjective: pt hx of falling admitted w/ pain preventing ambulation, is doing better w/ ot/pt, asking for less pain meds Objective: Vitals: T=98.8 F, P=88, R=12, VO=443/61, SPO2=96 HEENT: []conjunctiva clear Neck: []supple Lungs: [] no respiratory distress CVS: [] Abdomen: []nondistended Extremities: []tinea of right great toe Neurological: []alert and oriented Skin: []pink Lab/Tests/Diagnostic Imaging: [] ct of pelvis no fx Plan: continue ot/pt, apply for swing bed tomorrow for ongoing ot/pt, lotrimin for right great toe, stop mobic and hctz for renal insufficiency care to Dr Turner at 19:00
[2022-07-06] MEDS: CYMBALTA PO SCH ×2 (18:23→20:17)
[2022-07-06] MEDS: LIPITOR PO SCH (20:19)
[2022-07-06] MEDS: LOTRIMIN TP SCH (20:19)
[2022-07-06] MEDS: DILAUDID 1 MG/ML SYRINGE IVP PRN (21:01)
[2022-07-07] MEDS: DILAUDID 1 MG/ML SYRINGE IVP PRN (03:12)
[2022-07-07] MEDS: PRILOSEC PO SCH (05:37)
[2022-07-07] MEDS: HUMULIN R SUBCUT PRN ×4 (05:49→20:25)
[2022-07-07] MEDS: CYMBALTA PO SCH ×2 (09:00→20:18)
[2022-07-07] MEDS: FLONASE NAS SCH (09:20)
[2022-07-07] MEDS: TRIGLIDE PO SCH (09:20)
[2022-07-07] MEDS: TOPROL XL PO SCH (09:21)
[2022-07-07] MEDS: FERROUS SULFATE PO SCH (09:22)
[2022-07-07] MEDS: ZESTRIL PO SCH (09:23)
[2022-07-07] MEDS: GLUCOPHAGE PO SCH ×2 (09:23→17:44)
[2022-07-07] MEDS: MULTIVITAMIN TABLET PO SCH (09:25)
[2022-07-07] MEDS: LOTRIMIN TP SCH ×2 (09:25→20:30)
[2022-07-07] MEDS: LANTUS SUBCUT SCH ×2 (09:26→17:51)
--- NOTE | 2022-07-07 10:48 | RS.OTINEVL ---
Subjective - Patient information Date of Evaluation: 07/07/22 Date of Arrival on Unit: 07/05/22 Admitted From:: Home Diagnosis: Intractable pain, unable to walk PRECAUTIONS: 3 Falls at home last week. Usual Living Arrangement: Alone Living Arrangement Comments: has help at home 4 days a week Home Environment: Apartment, Level/No stairs Medical History: Hypertension, Diabetes, Arthritis Medical History Comments:: depression, anxiety, degerative disc, chronic LBP, fibromyalgia LATEX ALLERGY?: Yes Surgical History Comments:: CTR Medications: see chart Subjective Information/ Patient Comments:: "I need to do this. I don't think I can do this." - Level of function Prior to this admission, the patient could do the following:: Independent Selfcare, Independent ADL's, Independent Ambulation Current Equipment Used at Home: has a rwx but did not have to use prior to falls, glucometer Pain Assessment - Pain Pain Score: 12 Side: left Pain Location Body Site: Knee Pain Aggravating Factors: ADL's, Changing Position, Exercise/Activity, Standing, Walking, Stair Climbing Pain Alleviating Factors: Medication, Sitting, Lying Supine Interventions - Objective Patient Orientation: Person, Place, Time, Situation Current Interventions: IV's Observation: Pt is very emotional and cries 3 x during the OT evaluation. Pt requires moderate encouragement to continue. Pt is min A x 2 to stand from chair. Pt reports her pain is 12/10 and she can't do this, yet she continues to try. Pt has full AROM of BUE and appears weak in her ADL's and functional mobility. Interventions - ROM Right Upper Extremity AROM: WFL's Left Upper Extremity AROM: WFL's - Strength Right Upper Extremity Strength: Mild Weakness Left Upper Extremity Strength: Mild Weakness Functional Mobility VIVIANA INDEX SCORE: . Additional Treatment Performed - Time with patient Length of Evaluation: 20 Total treatment time: 20 Patient Education Patient Education: Education of diagnosis, Education of Plan of Care Teaching Recipient: Patient Teaching Methods: Teach Back Method Used, Discussion, Demonstration Assessment Problem List:: Decreased level of function, Requires training/education, Decreased safety/Risk of falls, Weakness, Pain limits previous level of function, Cognitive status limits abilities Rehab Potential: Fair Further Therapy Indicated?: Yes Candidate for Swing Bed for Therapy Services?: No. Evaluation Complexity: HISTORY: Medium, EXAM OF BODY SYSTEMS: Medium, CLINICAL DECISION MAKING: Medium Patient's Goal(s): To be able to go home and function as she did before her falls. Short Term Goals - Goals GOAL 1: To increase BUE strength to 4+/5. Goal to be met by: 07/11/22 GOAL 2: To increase toilet transfers to CGA with RW. Goal to be met by: 07/11/22 GOAL 3: To increase to CGA for sink level ADLS. Goal to be met by: 07/11/22 GOAL 4: Pt to increase dyn. std. bal. to Fair. Cryptographer Goals GOAL 1: To increase BUE to 5/5 for safe transfers with RW. Goal to be met by: 07/14/22 GOAL 2: To increase independence of ADLs to Independent. Goal to be met by: 07/14/22 GOAL 3: To increase dyn. std. bal. to Fair+/G- to increase safety of ADLs. Goal to be met by: 07/14/22 Plan Plan of Care: Therapeutic EX, Neuromuscular Re-Educ, Therapeutic Activity, Self- Care/Home Management Frequency of Treatment: 1-2 X day, as tolerated Duration of Treatment: 1 Week Anticipated [facility]charge Destination: [facility] Treatment Diagnosis (ICD 10 Codes): Weakness M62.81, Z74.1 Need for assistance with personal care, R26.81 Balance impaired/unsteady Has the Physician been added for Co-signature?: Yes
[2022-07-07] MEDS: NORCO 10-325 PO PRN (13:41)
[2022-07-07] MEDS ORDERED: FLONASE NAS PRN (14:33)
[2022-07-07] MEDS: LIPITOR PO SCH (20:25)
--- NOTE | 2022-07-07 22:09 | PCM.PROG ---
Date Seen by Provider: 07/07/22 Time Seen by Provider: 10:00 Subjective: CC - Hip and low back pain. Feeling somewhat better with pain med. Undergoing PT/OT. Still needs help with ambulation. Objective: Vitals: T=97.0 F, P=80, R=18, UB=141/61, SPO2=93 HEENT: [WNL] Neck: [WNL] Lungs: [clear] CVS: [RRR] Abdomen: [soft] Extremities: [Intact, persistent pain in lumbar/pelvic areas, reduced ROM] Neurological: [Intact] Skin: [wnl] Lab/Tests/Diagnostic Imaging: [No acute changes.] (1) Intractable low back pain: Status: Acute Code(s): M54.59 - Other low back pain SNOMED Code(s): [id number] Assessment: Pain in lumbar spine and hip areas. No fx, DDD. MRI of lumbar spine would be of benefit. Pain in hips as well, DDD. Unable to ambulate without assistance. Has been found not to be a swing bed candidate. [facility] placement underway. (2) Diabetes mellitus with insulin therapy: Status: Acute Code(s): E11.9 - Type 2 diabetes mellitus without complications; Z79.4 - watermaster (current) use of insulin SNOMED Code(s): 855450168 Assessment: Blood sugar not well controlled. Increase lantus to 50 u bid, cont . SS. (3) CKD (chronic kidney disease): Status: Acute Code(s): N18.9 - Chronic kidney disease, unspecified SNOMED Code(s): 283221593 Assessment: Improved, has some degree of CKD due to long-standing diabetes. Plan: Continue med, PT/OT pending jail placement. Check if MRI of lumbar spine an option as an inpatient.
[2022-07-08] MEDS ORDERED: MILK OF MAGNESIA PO PRN (00:21)
[2022-07-08] MEDS: DILAUDID 1 MG/ML SYRINGE IVP PRN (03:53)
[2022-07-08] MEDS: PRILOSEC PO SCH (05:35)
[2022-07-08] MEDS: MULTIVITAMIN TABLET PO SCH (09:08)
[2022-07-08] MEDS: TOPROL XL PO SCH (09:08)
[2022-07-08] MEDS: FERROUS SULFATE PO SCH (09:09)
[2022-07-08] MEDS: GLUCOPHAGE PO SCH ×2 (09:09→17:09)
[2022-07-08] MEDS: TRIGLIDE PO SCH (09:09)
[2022-07-08] MEDS: ZESTRIL PO SCH (09:09)
[2022-07-08] MEDS: LOTRIMIN TP SCH (09:15)
[2022-07-08] MEDS: CYMBALTA PO SCH (09:15)
[2022-07-08] MEDS: LANTUS SUBCUT SCH (09:17)
[2022-07-08] MEDS: NORCO 10-325 PO PRN (12:00)
[2022-07-08] MEDS: HUMULIN R SUBCUT PRN (12:06)
--- NOTE | 2022-07-08 14:16 | PCM.PROG ---
Date Seen by Provider: 07/08/22 Time Seen by Provider: 14:12 Subjective: pt depressed, states she doesn't want to live anymore, but has no plan for suicide, good eye contact, speech fluent, chronic lower back pain Objective: Vitals: T=97.3 F, P=79, R=18, LO=132/63, SPO2=93 HEENT: []conjunctiva clear Neck: []supple Lungs: []no respiratory distress CVS: [] Abdomen: []nondistended Extremities: []limited mario alberto left leg Neurological: []alert and oriented Skin: []pink Lab/Tests/Diagnostic Imaging: [] (1) Intractable low back pain: Status: Acute Code(s): M54.59 - Other low back pain SNOMED Code(s): 68634078357069047 (2) Diabetes mellitus with insulin therapy: Status: Acute Code(s): E11.9 - Type 2 diabetes mellitus without complications; Z79.4 - risk professional (current) use of insulin SNOMED Code(s): 677458838 (3) CKD (chronic kidney disease): Status: Acute Code(s): N18.9 - Chronic kidney disease, unspecified SNOMED Code(s): 463117500 Plan: await [facility] eval, and ct lumbar, care to Dr Cabrera at 19:00
[2022-07-08 15:08] VITALS: BP 120/69; TEMP 96.8
--- NOTE | 2022-07-08 15:14 | CT ---
EXAMINATION: CT LUMBAR SPINE WITHOUT CONTRAST HISTORY: Sciatica. Back pain. TECHNIQUE: Computed tomography (CT) of the lumbar spine was performed according to standard protocol without intravenous contrast. Contrast Dose: None CT Dose Reduction Techniques Performed: Yes. COMPARISON: None. FINDINGS: Numbering/Segmentation: Last fully formed disk space is designated L5-S1. Alignment: Last fully formed disk space is designated L5-S1. Post-Surgical Changes/Hardware: None. Bones: No fracture. No lytic or blastic lesion. Disk Spaces: Normal disk heights. Soft Tissues: Normal. Limited Abdomen: Normal visualized portions of the kidneys and adrenals. Abdominal aorta is not dila livier. Vascular calcifications are present consistent with atherosclerosis. Calcified fibroids visual ized in the uterus. Visualized Lower Thoracic Spine: There is no neuroforaminal stenosis. There is no spinal canal steno sis. Level By Level Degenerative Changes: L1-L2: Normal disc configuration. No central or neuroforaminal stenosis. L2-L3: Normal disc configuration. No central or neuroforaminal stenosis. L3-L4: Normal disc height. Mild diffuse disc bulge. Moderate central stenosis. No foraminal stenosi s. L4-L5: Mild loss of disc height. Moderate to severe central stenosis due to diffuse disc bulge, hype rtrophy of the facet joints, and hypertrophy of the ligamenta flava. Mild bilateral foraminal stenosi s. L5-S1: Normal disc configuration. No central or neuroforaminal stenosis. Limited Sacrum/Pelvis: Within normal limits. IMPRESSION: 1. Degenerative changes with spinal stenosis at L3-4 and L4-5 as described above. 2. Atherosclerosis. 3. Calcified fibroids in the uterus. 4. Otherwise unremarkable CT scan of the lumbar spine. All CT scans are performed using dose optimization techniques as appropriate to the performed exam an d include at least one of the following: Automated exposure control, adjustment of the mA and/or kV according t o size, and the use of iterative reconstruction technique.
[2022-07-08] MEDS ORDERED: LANTUS SUBCUT SCH (17:00)
--- NOTE | 2022-07-08 17:40 | PCM.DC ---
Final Diagnosis: chronic pain, deconditioning, depression Physical Exam Appearance: Well-appearing Ill-appearing: None Pain Distress: Mild Eyes: Conjunctiva clear ENT: Oropharynx normal Neck: Supple Respiratory: Airway patent Cardiovascular: RRR GI/: Other (nondistended) Musculoskeletal: Limited ROM Skin: Warm and Dry Neurological: Alert and Oriented Psychiatric: Affect appropriate (pt states at 16:01, "I will not kill myself.") (1) Intractable low back pain: Status: Acute Code(s): M54.59 - Other low back pain SNOMED Code(s): 98547897328916199 (2) Diabetes mellitus with insulin therapy: Status: Acute Code(s): E11.9 - Type 2 diabetes mellitus without complications; Z79.4 - senior living (current) use of insulin SNOMED Code(s): 245340314 (3) CKD (chronic kidney disease): Status: Acute Code(s): N18.9 - Chronic kidney disease, unspecified SNOMED Code(s): 409894266 Reason for Hospitalization: intractable pain Prognosis/Condition at Discharge: fair Medications at Discharge: home meds Lab/Diagnostics: ct lumbar spine no fx Education Provided to Patient and Family: physical therapy will improve the prognosis of chronic pain Follow-ups: your doctor next week Discharge Disposition: Inpatient Rehab Unit Hospital Course: improved rom 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
[2022-07-08] MEDS ORDERED: CYMBALTA PO SCH (21:00)
== END 2022-07-08 18:30 | DRG 552 ==
LOC: MEDSURG A 08:53 → ED 08:53 → OBSVTOIN 12:47 → MEDSURG A 13:26
PROVIDERS: ADMIT Emergency Medicine; ATTEND Emergency Medicine
DX: Z60.2 Problems related to living alone; M54.59 Other low back pain; N18.9 Chronic kidney disease, unspecified; Z20.822 Contact with and (suspected) exposure to COVID-19; R26.2 Difficulty in walking, not elsewhere classified; E66.9 Obesity, unspecified; E11.9 Type 2 diabetes mellitus without complications; M47.896 Other spondylosis, lumbar region; M25.552 Pain in left hip; Z79.899 Other long term (current) drug therapy; Z51.81 Encounter for therapeutic drug level monitoring; M25.551 Pain in right hip; Z79.4 Long term (current) use of insulin; M51.36 Other intervertebral disc degeneration, lumbar region; Z91.81 History of falling; F32.A Depression, unspecified; M54.16 Radiculopathy, lumbar region

== ENCOUNTER 2025-10-07 09:30 | Observation (INO) ==
[2025-10-07 10:12] LABS: IMMATURE GRANULOCYTE # (AUTO) 0.0 (0.0-1.0); IMMATURE GRANULOCYTE % (AUTO) 0.5 % (0.0-5.0); RDW COEFFICIENT OF VARIATION 13.0 % (11.6-14.8)
[2025-10-07 10:26] LABS: INR 0.93 SI (0.0-3.9)
--- NOTE | 2025-10-07 10:26 | ED.PDOC ---
General [facility] ED Provider: Dr. MAKEDA NAVA DO Chief Complaint: Weakness Stated Complaint: 70-year-old female presents to the ER accompanied by her home health nurse reporting a fall today. She states that she felt weak in her legs and began to fall but the home health nurse was able to catch her and guide her to the chair. She did not strike her head or lose consciousness. She denies any prodromal symptoms to include not limited to headache, diplopia, tinnitus, vertiginous symptoms, chest pain, palpitations, shortness of breath, abdominal pain, GI or symptoms. Denies recent illness or fever. Medical history reviewed in chart as available. She reports compliance with her medications. She furthermore states that over the last 6 weeks she has had a total of 3 falls now. Currently she reports pain consistent with her chronic back pain. Denies any paresthesia Time Seen by Provider: 10/07/25 09:32 Information Source: Patient Primary Care Provider: DUSTIN ESCOBAR APRN,[facility] Nursing and Triage Documentation Reviewed and Agree: Yes Opioid Naive vs. Tolerant What is Opioid Naive?: *Opioid Naive implies the patient is not already taking opioids or not chronically receiving opioids on a daily basis. *PRN dosing is not "usually" associated with tolerance. *Patients are at higher risk of over-sedation and aspiration. What is Opioid Tolerant?: *Opioid Tolerance implies less than the expected response to an opioid. *Acquired tolerance is defined by the patient taking 60mg of oral morphine daily (or equianalgesic dose of another opioid) for 1 week or more. *Often associated with chronic pain. *May take more than usual dose to achieve desired pain control. Review of Systems Review Of Systems Constitutional: Reports No symptoms All Other Systems: Reviewed and Negative [facility] Medical History Fall W19.XXXA - Unspecified fall, initial encounter (ICD-10) Sore throat J02.9 - Acute pharyngitis, unspecified (ICD-10) URI (upper respiratory infection) J06.9 - Acute upper respiratory infection, unspecified (ICD-10) Vomiting R11.10 - Vomiting, unspecified (ICD-10) Abdominal pain R10.9 - Unspecified abdominal pain (ICD-10) Personal history of musculoskeletal disorder fibromyalgia Z87.39 - Personal history of other diseases of the musculoskeletal system and connective tissue (ICD-10) Family History Mother Chronic alcohol abuse Cirrhosis Drug abuse and dependence FATHER Chronic alcohol abuse Cirrhosis Drug abuse and dependence Social History Smoking and tobacco status: Never smoker Second hand smoke exposure: Yes Alcohol intake: never Substance use type: does not use Counseling provided: none Angie/sikh: None Special angie needs: No Agree to transfusion: No Adopted: No Caregiver/support person: Yes Household members: none Housing: apartment Marital status: S SINGLE Lives independently: Yes Number of children: 0 Highest education level completed: high school graduate Financial difficulty paying for basics: not applicable service: No Current occupational status: disabled Current occupational exposures/hazards: No 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 Pets and animals: Yes (cats 4) Leisure activites: art, reading and other History of recent travel: No Sexually active: No Do you think of yourself as: straight/heterosexual Current gender identity: female Seatbelt use: always Helmet use: No Drives intoxicated or rides with intoxicated national van truck driver: No Current diet type/program: regular Well-balanced diet: rarely Caffeine: Yes Eating out: rarely or never Reads food labels: usually or always During the past year weight has: remained stable Water heater temperature set < 120 degrees: Yes Working smoke detector in home: Yes Fire extinguisher in home: No Carbon monoxide detector in home: Yes Firearms in home: No What type of physical activity do you participate in?: bicycling Physical activity functional status: independent ambulation How many days of moderate to strenuous exercise, like a brisk walk, did you do in the last 7 days: 0 Surgical History History of musculoskeletal system surgery carpal tunnel right Z98.890 - Other specified postprocedural states (ICD-10) History of gynecological procedure D and C Z98.890 - Other specified postprocedural states (ICD-10) Female Reproductive History Menstrual Age of Menarche: 8 Hx Hysterectomy: No Hx Tubal Ligation: No Physical Exam Physical Exam Appearance: Reports Well-appearing, No pain distress and Well-nourished Eyes: Reports MONO and EOMI ENT: Reports Nose normal, Oropharynx normal and Other (Vesicular rash on the left upper lip vermilion border) Respiratory: Reports Airway patent, Breath sounds clear, Breath sounds equal and Respirations nonlabored Cardiovascular: Reports RRR and Pulses normal GI/: Reports Soft and Nontender Musculoskeletal: Reports Normal strength and ROM intact Skin: Reports Warm, Dry and Normal color Neurological: Reports Sensation intact, Motor intact, Alert and Oriented Psychiatric: Reports Affect appropriate and Mood appropriate NIH Stroke Scale 1a. Level of Consciousness: 0=Alert and keenly responsive 1b. Level of Consciousness Questions: 0=Answers correctly to two questions 1c. Level of Consciousness Commands: 0=Performs two tasks correctly 2. Best Gaze: 0=Normal 3. Visual: 0=No visual loss 4. Facial Palsy: 0=Normal 5a. Motor Left Arm: 0=No drift,arm holds 90 degrees for 10 sec., leg 30 degrees for 5 sec. 5b. Motor Right Arm: 0=No drift,arm holds 90 degrees for 10 sec., leg 30 degrees for 5 sec. 6a. Motor Left Le=No drift,arm holds 90 degrees for 10 sec., leg 30 degrees for 5 sec. 6b. Motor Right Le=No drift,arm holds 90 degrees for 10 sec., leg 30 degrees for 5 sec. 7. Limb Ataxia: 0=Absent 8. Sensory: 0=Normal 9. Best Language: 0=No aphasia 10. Dysarthria: 0=Normal 11. Extincion and Inattention: 0=Normal Stroke Scale Total: 0 Badger Coma Scale Michelle Coma Scale Response Scores: Best Response = 15 Comatose Client = 8 or Less Totally Unresponsive = 3 Interpretation EKG Interpretation EKG Interpretation By: ED Physician Time of EKG #1: 10:26 Rate: Normal (83) Rhythm: Sinus Ectopy: None [place] Star: NL ST Segment: Normal Interpretation: First-degree AV block no Re-Evaluation Re-Evaluation Additional Comments: 70-year-old female presents to the ER with recurrent falls. Today makes the third fall and recent history. This is new for her. She is afebrile nontoxic infectious etiology. Denies any active neurologic symptoms such as paresthesia or weakness or headache. Nonfocal neuroexam. Low suspicion for neurologic events to include but not limited to CVA, TIA, SAH, ICH, SDH. By history, these remain less likely. Patient also asymptomatic with respect to cardiopulmonary processes and low suspicion for ACS, GA, PE, pneumothorax, dissection or tamponade. Nonetheless we will obtain cardiac workup and blood work to further evaluate. Abdomen soft nontender throughout and no acute complaints so lower suspicion for acute intra-abdominal or metabolic process. Will also obtain urinalysis to review for potential underlying causes. Progressive weakness or deconditioning also in the differential. Given history of chronic pain, pain medication also may play a part 1315: Glucose improved, vital stable. Discussed with hospitalist for admission concern for recurrent falls, poorly controlled diabetes, deconditioning Physician Progress Note Physician Progress Note: All EKGs and plain film imaging independently reviewed and interpreted by me unless stated otherwise. CTs interpreted by radiology unless otherwise stated. All pediatric patients are accompanied by parent or legal guardian as primary historian and/or validate patient report unless otherwise stated. Course Course 10/07/25 10:05 10/07/25 10:05 Orders, Labs, Meds: Lab Review 10/07/25 10/07/25 09:40 10:05 WBC 5.94 RBC 4.55 Hgb 14.0 Hct 42.9 MCV 94.3 MCH 30.8 MCHC 32.6 RDW Coeff of Kait 13.0 Plt Count 223 Immature Gran % (Auto) 0.5 Neut % (Auto) 61.6 Lymph % (Auto) 29.5 [place] % (Auto) 5.4 Eos % (Auto) 2.0 Baso % (Auto) 1.0 Neut # (Auto) 3.7 Lymph # (Auto) 1.8 [place] # (Auto) 0.3 L Eos # (Auto) 0.1 Baso # (Auto) 0.1 Immature Gran # (Auto) 0.0 PT 9.7 INR 0.93 APTT 22.3 L Sodium 132.7 L Potassium 4.54 Chloride 102.5 Carbon Dioxide 21.9 L Anion Gap 12.84 BUN 37.6 H Creatinine 1.38 H Estimated GFR (MDRD) 38.00 BUN/Creatinine Ratio 27.24 Glucose 412.0 H Calcium 9.96 Magnesium 2.09 Total Bilirubin 1.00 AST 15.2 ALT 14.5 Alkaline Phosphatase 218.8 H Total Creatine Kinase < 20.0 L Troponin I < 0.012 NT-Pro-B Natriuret Pep 100 Total Protein 7.52 Albumin 3.90 Globulin 3.62 Albumin/Globulin Ratio 1.07 TSH 4.040 Urine Color Light Urine Clarity Clear Urine pH 6.0 Ur Specific [place] 1.025 Urine Protein 3+ H Urine Glucose (UA) 3+ H Urine Ketones 1+ H Urine Blood 1+ H Urine Nitrite Negative Urine Bilirubin Negative Urine Urobilinogen 0.2 Ur Leukocyte Esterase Negative Urine Microscopic RBC 10-20 Urine Microscopic WBC 5-10 Ur Squamous Epith Cells 5-10 Ur Renal Epithelial Cell 5-10 Triple Phos Crystals Trace Urine Bacteria 1+ Granular Casts 0-2 Other Casts 2-5 Urine Opiates Screen Negative Ur Oxycodone Screen Negative Urine Methadone Screen Negative Ur Barbiturates Screen Negative U Tricyclic Antidepress Negative Ur Phencyclidine Scrn Negative Ur Amphetamine Screen Negative U Methamphetamines Scrn Negative U Benzodiazepines Scrn Negative Urine Cocaine Screen Negative U Cannabinoids Screen Negative Influ A Molecular Assay Negative by naat Influ B Molecular Assay Negative by naat SARS CoV-2 RNA Rapid MARGARET Negative Orders Category Date Time Status ADMIT OBSERVATION [PLACE PATIENT OBSERVATION] .TO ADMISSION 10/07/25 13:15 Active MEDSURG (MONITORED BED) EKG-(ED & IP/OBS ONLY) Stat CARDIO 10/07/25 09:45 Completed TELEMETRY MONITORING TELE CARE 10/07/25 13:15 Active Glucose [ED ACCUCHECK ASSESSMENT] .ONCE EMERGENCY 10/07/25 12:50 Active IV [ED IV/MEDIPORT/POWERPORT] .ONCE EMERGENCY 10/07/25 09:45 Active CBC W/ AUTO DIFF Stat LAB 10/07/25 10:05 Completed CMP [COMPREHENSIVE METABOLIC PANEL] Stat LAB 10/07/25 10:05 Completed COVID [SARS COV-2 RNA RAPID MARGARET] Stat LAB 10/07/25 09:40 Completed CREATINE KINASE Stat LAB 10/07/25 10:05 Completed DRUG SCREEN (RAPID FOR ED) [DRUG SCREEN, URINE, RAPID] LAB 10/07/25 09:40 Completed Stat ED PROBNP [NT-PROBNP(ED)] Stat LAB 10/07/25 10:05 Completed FLU A & B MOLECULAR [FLU A/B MOLECULAR] Stat LAB 10/07/25 09:40 Completed MAGNESIUM Stat LAB 10/07/25 10:05 Completed PT WITH INR Stat LAB 10/07/25 10:05 Completed PTT [PARTIAL THROMBOPLASTIN TIME] Stat LAB 10/07/25 10:05 Completed THYROID STIMULATING HORMONE Stat LAB 10/07/25 10:05 Completed TROPONIN I Stat LAB 10/07/25 10:05 Completed URINALYSIS C & S IF INDICATED Stat LAB 10/07/25 09:40 Completed URINE CULTURE Stat LAB 10/07/25 09:40 Received 0.9 % Sodium Chloride [Saline Flush] Meds 10/07/25 09:44 Active 1 syr IVF PRN PRN Insulin Regular, Human [Humulin R (10Ml)] Meds 10/07/25 11:01 Discontinued 6 unit IVP ONCE STA Sodium Chloride 0.9% [Sodium Chloride] 1,000 ml Meds 10/07/25 09:44 Discontinued IV BOLUS CHEST, 1V AP ONLY Stat RADS 10/07/25 09:[address] HEAD W/O CONTRAST Stat RADS 10/07/25 09:45 Completed Medications Generic Name Dose Route Start Last Admin Trade Name Freq PRN Reason Stop Dose Admin Acetaminophen 650 mg 10/07/25 13:43 10/07/25 21:19 Acetaminophen 325 Mg Tablet PO 650 mg Q4H PRN Administration Mild Pain Albuterol Sulfate 2 puff 10/07/25 15:32 Albuterol Sulfate 8 Gm Inhaler IH 4XD PRN Wheezing Atorvastatin Calcium 80 mg 10/07/25 15:35 10/07/25 15:59 Atorvastatin Calcium 20 Mg Tablet PO 80 mg DAILY MICHELE Administration Cyclobenzaprine HCl 5 - 10 mg 10/07/25 15:32 10/07/25 16:00 Cyclobenzaprine Hcl 10 Mg Tablet PO 10 mg 1-3XD PRN Administration Spasms Ferrous Sulfate 324 mg 10/08/25 09:00 Ferrous Sulfate 324 Mg Tablet.Dr PO DAILY MICHELE Fluoxetine HCl 40 mg 10/07/25 16:00 10/07/25 16:00 Fluoxetine Hcl 20 Mg Capsule PO 40 mg DAILY MICHELE Administration Fluticasone Propionate 1 spray 10/07/25 21:00 10/07/25 21:19 Fluticasone Propionate 16 Gm Nasal [place] JAMAL 1 spray Q12HR MICHELE Administration CEFTRIAXONE/D5W 1 GM PREMIX 1 gm in 50 mls @ 100 mls/hr 10/07/25 14:00 10/07/25 14:58 Rocephin 1 Gm/50 Ml D5w IV 10/10/25 13:59 100 mls/hr DAILY MICHELE Administration Insulin Glargine 30 unit 12/01/25 21:00 10/07/25 21:25 Insulin Glargine,Hum.Rec.Anlog 100 Units/Ml SUBCUT 30 unit 2XD MICHELE Administration Insulin Human Lispro 0 unit 10/07/25 15:45 Insulin Lispro 100 Unit/Ml (10 Ml Vial) SUBCUT On Hold: 10/07/25 17:04 TID PRN HYPERGLYCEMIA PER SLIDING SCAL Insulin Human Regular 0 unit 10/07/25 13:52 10/07/25 21:20 Insulin Regular, Human 100 Unit/Ml (10ml) Vial SUBCUT 10 unit PRN PRN Administration Hyperglycemia Protocol Lisinopril 40 mg 10/08/25 09:00 Lisinopril 40 Mg Tablet PO DAILY MICHELE Metoprolol Succinate 100 mg 10/07/25 15:40 10/07/25 16:00 Metoprolol Succinate 50 Mg Tab.Er.24h PO 100 mg DAILY MICHELE Administration Non-Formulary Medication 1 mcg 10/08/25 09:00 Paricalcitol PO DAILY MICHELE Non-Formulary Medication 1 drop 10/07/25 15:32 Peg 400-Propylene Glycol (Pf) [Systane Hydration (Pf)] EACHEYE 2-4XD PRN Dry Eye Pantoprazole Sodium 40 mg 10/07/25 16:00 10/07/25 16:00 Pantoprazole Sodium 40 Mg Tablet.Dr PO 40 mg QDAC2 MICHELE Administration Sodium Chloride 1 syr 10/07/25 09:44 0.9% Sodium Chloride 10 Ml Disp.Syrin IVF PRN PRN To flush IV Discontinued Medications Generic Name Dose Route Start Last Admin Trade Name Freq PRN Reason Stop Dose Admin Sodium Chloride 1,000 mls @ 1,000 mls/hr 10/07/25 09:44 10/07/25 12:33 Sodium Chloride IV 10/07/25 10:43 Infused BOLUS ONE Infusion Insulin Human Regular 6 unit 10/07/25 11:01 10/07/25 11:28 Insulin Regular, Human 100 Unit/Ml (10ml) Vial 0.1 unit/kg (6 unit) 10/07/25 11:02 6 unit IVP Administration ONCE STA Vital Signs: Temp Pulse Resp BP Pulse Ox 10/07/25 09:41 98.5 F 97 18 195/106 H 98 Discharge Plan Discharge Patient Disposition: PLACED OBSERVATION Discharge Problem: Acute hyperglycemia, Recurrent falls, Weakness Did you review [place] TABLE INSPECTOR for ALL controlled substances?: Not Applicable ED Provider: MAKEDA NAVA Condition: Stable
[2025-10-07 10:34] LABS: CREATININE 1.38 mg/dL (0.60-1.30)
[2025-10-07 10:42] LABS: LEUKOCYTE ESTERASE ,URINE Negative (NEGATIVE); URINE, BLOOD 1+ (NEGATIVE)
--- NOTE | 2025-10-07 10:48 | DI ---
EXAM: CHEST RADIOGRAPH TECHNIQUE: Single frontal chest radiograph. HISTORY: Chest pain and shortness of breath. COMPARISON: 06/20/2025 FINDINGS: Interval development of mild pneumonia versus atelectasis of the right base. No pleural effusion or pneumothorax is seen. Heart size is normal. No acute displaced rib fractures are identified. IMPRESSION: 1. Mild pneumonia versus atelectasis of the right base. Follow up radiographs are recommended to show resolution.
[2025-10-07 10:49] LABS: GLUCOSE, URINE (UA) 3+ (NEGATIVE)
[2025-10-07 10:58] LABS: MOLECULAR FLU A NEGATIVE BY NAAT (NEGATIVE); MOLECULAR FLU B NEGATIVE BY NAAT (NEGATIVE); SARS COV-2 RNA RAPID NAAT NEGATIVE (NEGATIVE); TRIPLE PHOSPHATE CRYSTAL,UR TRACE (NOT PRESENT)
--- NOTE | 2025-10-07 11:05 | CT ---
EXAMINATION: HEAD CT WITHOUT CONTRAST HISTORY: Recurring falls. TECHNIQUE: Noncontrast CT of the brain was performed with images acquired from skull base to vertex. 2-D coronal and sagittal reformatted images were obtained from the axial source images. Contrast Dose: None. CT Dose Reduction Techniques Performed: Yes. COMPARISON: 06/20/2025 FINDINGS: Stable mild atrophy. No intracranial hemorrhage or significant extra-axial fluid collection. Stable mild nonspecific low-density changes of the periventricular white matter. [place]rago white differentiation is preserved. Stable 1.1 cm mildly hyperdense partially calcified left frontal extra-axial lesion at level of the central semiovale anteriorly, and 0.8 cm right parietal extra-axial calcification at the same level, probably meningiomas. No midline shift or significant mass effect. No hydrocephalus. Right cataract surgery, again noted. The visualized mastoid air cells and paranasal sinuses are clear. No visible skull fracture. IMPRESSION: 1. No acute intracranial findings. 2. Stable mild atrophy and chronic microvascular ischemic changes. 3. Stable probable left frontal and right parietal meningiomas. All CT scans are performed using dose optimization techniques as appropriate to the performed exam and include at least one of the following: Automated exposure control, adjustment of the mA and/or kV according to size, and the use of iterative reconstruction technique.
[2025-10-07 11:22] LABS: AMPHETAMINE SCREEN,URINE NEGATIVE (NEGATIVE); CANNABINOID SCREEN,URINE NEGATIVE (NEGATIVE); COCAIN SCREEN,URINE NEGATIVE (NEGATIVE); METHADONE URINE SCREEN NEGATIVE (NEGATIVE); METHAMPHETAMINES SCREEN,URINE NEGATIVE (NEGATIVE); OXYCODONE URINE SCREEN NEGATIVE (NEGATIVE); TRICYCLIC ANTIDEPRESSANTS URIN NEGATIVE (NEGATIVE)
[2025-10-07] MEDS: SODIUM CHLORIDE 1,000 ML IV ONE (11:25)
[2025-10-07] MEDS: HUMULIN R (10ML) IVP STA (11:28)
[2025-10-07 14:25] VITALS: BMI 44.8
[2025-10-07] MEDS: ROCEPHIN 1 GM/50 ML D5W 1 GM/50 ML BAG IV SCH (14:58)
[2025-10-07] MEDS ORDERED: VENTOLIN HFA IH PRN (15:32)
[2025-10-07] MEDS ORDERED: PEG PROPYLENE GLYCOL EACHEYE PRN (15:32)
[2025-10-07] MEDS ORDERED: HUMALOG (10 ML VIAL) SUBCUT PRN (15:45)
[2025-10-07] MEDS: LIPITOR PO SCH (15:59)
[2025-10-07] MEDS: TOPROL XL PO SCH (16:00)
[2025-10-07] MEDS: PROZAC PO SCH (16:00)
[2025-10-07] MEDS: FLEXERIL PO PRN (16:00)
[2025-10-07] MEDS: PROTONIX PO SCH (16:00)
[2025-10-07] MEDS: HUMULIN R (10ML) SUBCUT PRN (17:09)
[2025-10-07] MEDS: FLONASE NAS SCH (21:19)
[2025-10-07] MEDS: TYLENOL PO PRN (21:19)
[2025-10-07] MEDS: LANTUS SUBCUT SCH (21:25)
--- NOTE | 2025-10-07 21:37 | PCM ---
Date of Service Date Seen by Provider: 10/07/25 Time Seen by Provider: 13:15 Admit Day/Time Admission Date: 10/07/25 Admission Time: 13:10 Reason for Admission Chief Complaint: HYPERGLYCEMIA,RECURRENT FALLS,DECONDITIONING Hospital Provider Hospital Provider: MASON BAILEY, [facility] [place] Care Physician Primary Care Physician: DUSTIN ESCOBAR APRN,[facility] History of Present Illness History of Present Illness: 70 yo female with pmh of DM2, CKD, Chronic pain, HTN, hyperparathyroidism, and depression presented to the ER following a fall. Patient states she feels as if she is getting progressively weaker over the last 1 month. Fell 3 times last week. Denies loss of consciousness when she has these episodes. Has a homemaker to help with groceries and tidying the home but has not done PT/OT in at least 2-3 years. Denies any fever, chills, cough, sob, chest pain, palpitations, dizziness. Does endorse issues with incontinence that she hasn't had until recently and foul smell to her urine. UA suspicious for UTI. This provider assisted patient to bedside commode and required significant assistance to get into and out of the bed. Admitted to med/surg observation. Case Discussed With Case Discussed With: Patient's case was discussed with the ER Physicians, Dr. Mckeon. [facility] Medical History Fall W19.XXXA - Unspecified fall, initial encounter (ICD-10) Sore throat J02.9 - Acute pharyngitis, unspecified (ICD-10) URI (upper respiratory infection) J06.9 - Acute upper respiratory infection, unspecified (ICD-10) Vomiting R11.10 - Vomiting, unspecified (ICD-10) Abdominal pain R10.9 - Unspecified abdominal pain (ICD-10) Personal history of musculoskeletal disorder fibromyalgia Z87.39 - Personal history of other diseases of the musculoskeletal system and connective tissue (ICD-10) Surgical History History of musculoskeletal system surgery carpal tunnel right Z98.890 - Other specified postprocedural states (ICD-10) History of gynecological procedure D and C Z98.890 - Other specified postprocedural states (ICD-10) Family History Mother Chronic alcohol abuse Cirrhosis Drug abuse and dependence FATHER Chronic alcohol abuse Cirrhosis Drug abuse and dependence Social History Smoking and tobacco status: Never smoker Second hand smoke exposure: Yes Alcohol intake: never Substance use type: does not use Counseling provided: none Angie/gnosticist: None Special angie needs: No Agree to transfusion: No Adopted: No Caregiver/support person: Yes Household members: none Housing: apartment Marital status: S SINGLE Lives independently: Yes Number of children: 0 Highest education level completed: high school graduate Financial difficulty paying for basics: not applicable service: No Current occupational status: disabled Current occupational exposures/hazards: No 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 Pets and animals: Yes (cats 4) Leisure activites: art, reading and other History of recent travel: No Sexually active: No Do you think of yourself as: straight/heterosexual Current gender identity: female Seatbelt use: always Helmet use: No Drives intoxicated or rides with intoxicated freight delivery driver: No Current diet type/program: regular Well-balanced diet: rarely Caffeine: Yes Eating out: rarely or never Reads food labels: usually or always During the past year weight has: remained stable Water heater temperature set < 120 degrees: Yes Working smoke detector in home: Yes Fire extinguisher in home: No Carbon monoxide detector in home: Yes Firearms in home: No What type of physical activity do you participate in?: bicycling Physical activity functional status: independent ambulation How many days of moderate to strenuous exercise, like a brisk walk, did you do in the last 7 days: 0 Allergies Allergies Allergy/AdvReac Type Severity Reaction Status Date / Time latex Allergy Mild hives Verified 10/07/25 09:40 naproxen (From Naprosyn) Allergy hives Verified 10/07/25 09:40 Current Medications Home Medications Acetaminophen (Acetaminophen 325 Mg Tablet) 650 mg PO Q4H PRN PRN Reason: Mild Pain Last Admin: 10/07/25 21:19 Dose: 650 mg Albuterol Sulfate (Albuterol Sulfate 8 Gm Inhaler) 2 puff IH 4XD PRN PRN Reason: Wheezing Atorvastatin Calcium (Atorvastatin Calcium 20 Mg Tablet) 80 mg PO DAILY [facility] Last Admin: 10/07/25 15:59 Dose: 80 mg Cyclobenzaprine HCl (Cyclobenzaprine Hcl 10 Mg Tablet) 5 - 10 mg PO 1-3XD PRN PRN Reason: Spasms Last Admin: 10/07/25 16:00 Dose: 10 mg Ferrous Sulfate (Ferrous Sulfate 324 Mg Tablet.) 324 mg PO DAILY [facility] Fluoxetine HCl (Fluoxetine Hcl 20 Mg Capsule) 40 mg PO DAILY [facility] Last Admin: 10/07/25 16:00 Dose: 40 mg Fluticasone Propionate (Fluticasone Propionate 16 Gm Nasal Roberts) 1 spray JAMAL Q12HR [facility] Last Admin: 10/07/25 21:19 Dose: 1 spray CEFTRIAXONE/D5W 1 GM PREMIX (Rocephin 1 Gm/50 Ml D5w) 1 gm in 50 mls @ 100 mls/hr IV DAILY [facility] Stop: 10/10/25 13:59 Last Admin: 10/07/25 14:58 Dose: 100 mls/hr Insulin Glargine (Insulin Glargine,Hum.Rec.Anlog 100 Units/Ml) 30 unit SUBCUT 2XD [facility] Last Admin: 10/07/25 21:25 Dose: 30 unit Insulin Human Lispro (Insulin Lispro 100 Unit/Ml (10 Ml Vial)) 0 unit SUBCUT TID PRN On Hold: 10/07/25 17:04 PRN Reason: HYPERGLYCEMIA PER SLIDING SCAL Insulin Human Regular (Insulin Regular, Human 100 Unit/Ml (10ml) Vial) 0 unit SUBCUT PRN PRN; Protocol PRN Reason: Hyperglycemia Last Admin: 10/07/25 21:20 Dose: 10 unit Lisinopril (Lisinopril 40 Mg Tablet) 40 mg PO DAILY [facility] Metoprolol Succinate (Metoprolol Succinate 50 Mg Tab.Er.24h) 100 mg PO DAILY [facility] Last Admin: 10/07/25 16:00 Dose: 100 mg Non-Formulary Medication (Paricalcitol) 1 mcg PO DAILY [facility] Non-Formulary Medication (Peg 400-Propylene Glycol (Pf) [Systane Hydration (Pf)]) 1 drop EACHEYE 2-4XD PRN PRN Reason: Dry Eye Pantoprazole Sodium (Pantoprazole Sodium 40 Mg Tablet.) 40 mg PO QDAC2 [facility] Last Admin: 10/07/25 16:00 Dose: 40 mg Sodium Chloride (0.9% Sodium Chloride 10 Ml Disp.Syrin) 1 syr IVF PRN PRN PRN Reason: To flush IV blood-glucose meter (Q-Bot Ultra2 Meter) #1 ea 04/29/24 [Rx Confirmed 10/07/25] pantoprazole 40 mg tablet,delayed release (Protonix) 40 mg PO QDAY 12/11/24 [History Confirmed 10/07/25] blood-glucose sensor (CSID G7 Sensor device) #1 ea 03/11/25 [Rx Confirmed 10/07/25] blood-glucose,computer artist,cont (Dexcom G7 Pathology Lab Technician) #1 ea 03/11/25 [Rx Confirmed 10/07/25] cholecalciferol (vitamin D3) 1,250 mcg (50,000 unit) capsule 1,250 mcg PO QWEEK #5 caps 05/06/25 [Rx Confirmed 10/07/25] albuterol sulfate 90 mcg/actuation aerosol inhaler 2 puff inhalation 4XD PRN for wheezing #6.7 ea 06/07/25 [Rx Confirmed 10/07/25] lancets 30 gauge (OneTouch Delica Plus Lancet) #200 ea 06/10/25 [Rx Confirmed 10/07/25] insulin lispro 100 unit/mL subcutaneous pen (Humalog KwikPen (U-100) Insulin) See Rx Instructions .Route .COMPLEX #15 mL 08/05/25 [Rx Confirmed 10/07/25] fluoxetine 40 mg capsule 40 mg PO QDAY #90 caps 08/06/25 [Rx Confirmed 10/07/25] peg 400 0.4 %-propylene glycol (PF) 0.3 % eye drops (Systane Hydration (PF)) 1 drp BOTHEYES BID-QID PRN dry eye(s) 08/06/25 [History Confirmed 10/07/25] pen needle, diabetic 31 gauge x 3/16" (TRUEplus Pen Needle) #1,200 ea 09/02/25 [Rx Confirmed 10/07/25] insulin glargine 100 unit/mL (3 mL) subcutaneous pen (Lantus Solostar U-100 Insulin) 30 unit (0.3 mL) subcut 2XD 30 days #30 ea 10/01/25 [Rx Confirmed 10/07/25] atorvastatin 80 mg tablet 80 mg PO DAILY #30 tabs 10/06/25 [Rx Confirmed 10/07/25] blood sugar diagnostic (OneTouch Ultra Test strips) #100 ea 10/06/25 [Rx Confirmed 10/07/25] cyclobenzaprine 5 mg tablet 5 - 10 mg (1 - 2 x 5 mg) PO 1-3XD PRN for muscle spasm #60 tabs 10/06/25 [Rx Confirmed 10/07/25] ferrous sulfate 325 mg (65 mg iron) tablet (FeroSul) 325 mg PO DAILY #30 tabs 10/06/25 [Rx Confirmed 10/07/25] fluticasone propionate 50 mcg/actuation nasal spray,suspension 1 spray BOTHNARES Q12HR #16 ea 10/06/25 [Rx Confirmed 10/07/25] lisinopril 40 mg tablet 40 mg PO DAILY #30 tabs 10/06/25 [Rx Confirmed 10/07/25] metoprolol succinate 100 mg tablet,extended release 24 hr 100 mg PO DAILY #30 tabs 10/06/25 [Rx Confirmed 10/07/25] paricalcitol 1 mcg capsule 1 mcg PO DAILY #30 caps 10/06/25 [Rx Confirmed 10/07/25] ergocalciferol (vitamin D2) 1,250 mcg (50,000 unit) capsule 1,250 mcg PO WEEKLY 10/07/25 [History Confirmed 10/07/25] Opioid Naive vs. Tolerant Does Patient Take Opioids?: No Is Patient Opioid Naive?: Yes What is Opioid Naive?: *Opioid Naive implies the patient is not already taking opioids or not chronically receiving opioids on a daily basis. *PRN dosing is not "usually" associated with tolerance. *Patients are at higher risk of over-sedation and aspiration. Is Patient Opioid Tolerant?: No What is Opioid Tolerant?: *Opioid Tolerance implies less than the expected response to an opioid. *Acquired tolerance is defined by the patient taking 60mg of oral morphine daily (or equianalgesic dose of another opioid) for 1 week or more. *Often associated with chronic pain. *May take more than usual dose to achieve desired pain control. Review of Systems Constitutional: Reports Weakness Head: Reports Normocephalic and Atraumatic Eyes: Reports No symptoms Ears: Reports No symptoms Nose: Reports No symptoms Mouth: Reports No symptoms Throat: Reports No symptoms Cardiovascular: Reports No symptoms Respiratory: Reports No symptoms Gastrointestinal: Reports No symptoms Genitourinary: Reports Incontinence and Other (foul smelling urine) Musculoskeletal: Reports No symptoms Endocrine: Reports No symptoms Hematology: Reports No symptoms Immunology: Reports No symptoms Neurological: Reports No symptoms Psychiatric: Reports No symptoms Physical examination Most Recent Vital Signs: Most Recent Vital Signs Temperature 98.2 F 10/07/25 18:00 Temperature Source Oral 10/07/25 18:00 Temperature Source Temporal Artery Scan 10/07/25 09:41 Pulse Rate 73 10/07/25 18:00 Respiratory Rate 12 10/07/25 18:00 Blood Pressure 172/81 H 10/07/25 18:00 Blood Pressure Mean 111 10/07/25 18:00 Blood Pressure Left Arm 177/102 10/07/25 14:00 Blood Pressure Location Left Arm 10/07/25 18:00 Blood Pressure Position Sitting 10/07/25 14:00 O2 Sat by Pulse Oximetry 97 10/07/25 18:00 Oxygen Delivery Method Room Air 10/07/25 20:58 Height 5 ft 4 in 10/07/25 14:00 Weight 118.4 kg 10/07/25 14:00 Telemetry Type Bedside Monitor 10/07/25 14:11 Telemetry Monitoring Continues 10/07/25 19:00 Telemetry Heart Rate 83 10/07/25 14:11 Telemetry SPO2 99 10/07/25 14:11 EKG VA Interval 0.20 10/07/25 14:11 EKG QRS Interval 0.06 10/07/25 14:11 Telemetry Strip Reading SR 10/07/25 14:11 Appearance: Positive No Apparent Distress and Alert and Oriented x3 Skin: Positive Warm and Good Color HEENT: Positive Normocephalic and PERRLA Neck: Positive Supple and Midline Trachea Chest/Lungs: Positive Symmetrical With Equal Breath Sounds, Clear to Auscultation Bilaterally and Good Air Movement all 4 Lung Juarez Heart: Positive RRR and Pulses Normal GI/: Positive Soft, Nontender, Bowel Sounds Normal and No Distention Musculoskeletal: Positive Other (unsteady gait, stiff movements) Extremities: Positive Edema (+2 nonpitting), Intact Peripheral Pulses, Stable Joints Without Laxity and Good ROM in All Joints Neurological: Positive Sensation Intact, Motor intact, Reflexes Intact, Alert, Oriented and Other (generalized weakness) Labs This Visit Labs This Visit: Labs This Visit 10/07/25 10/07/25 09:40 10:05 WBC 5.94 RBC 4.55 Hgb 14.0 Hct 42.9 MCV 94.3 MCH 30.8 MCHC 32.6 RDW Coeff of Kait 13.0 Plt Count 223 Immature Gran % (Auto) 0.5 Neut % (Auto) 61.6 Lymph % (Auto) 29.5 Conway % (Auto) 5.4 Eos % (Auto) 2.0 Baso % (Auto) 1.0 Neut # (Auto) 3.7 Lymph # (Auto) 1.8 Conway # (Auto) 0.3 L Eos # (Auto) 0.1 Baso # (Auto) 0.1 Immature Gran # (Auto) 0.0 PT 9.7 INR 0.93 APTT 22.3 L Sodium 132.7 L Potassium 4.54 Chloride 102.5 Carbon Dioxide 21.9 L Anion Gap 12.84 BUN 37.6 H Creatinine 1.38 H Estimated GFR (MDRD) 38.00 BUN/Creatinine Ratio 27.24 Glucose 412.0 H Calcium 9.96 Magnesium 2.09 Total Bilirubin 1.00 AST 15.2 ALT 14.5 Alkaline Phosphatase 218.8 H Total Creatine Kinase < 20.0 L Troponin I < 0.012 NT-Pro-B Natriuret Pep 100 Total Protein 7.52 Albumin 3.90 Globulin 3.62 Albumin/Globulin Ratio 1.07 TSH 4.040 Urine Color Light Urine Clarity Clear Urine pH 6.0 Ur Specific Spur 1.025 Urine Protein 3+ H Urine Glucose (UA) 3+ H Urine Ketones 1+ H Urine Blood 1+ H Urine Nitrite Negative Urine Bilirubin Negative Urine Urobilinogen 0.2 Ur Leukocyte Esterase Negative Urine Microscopic RBC 10-20 Urine Microscopic WBC 5-10 Ur Squamous Epith Cells 5-10 Ur Renal Epithelial Cell 5-10 Triple Phos Crystals Trace Urine Bacteria 1+ Granular Casts 0-2 Other Casts 2-5 Urine Opiates Screen Negative Ur Oxycodone Screen Negative Urine Methadone Screen Negative Ur Barbiturates Screen Negative U Tricyclic Antidepress Negative Ur Phencyclidine Scrn Negative Ur Amphetamine Screen Negative U Methamphetamines Scrn Negative U Benzodiazepines Scrn Negative Urine Cocaine Screen Negative U Cannabinoids Screen Negative Influ A Molecular Assay Negative by naat Influ B Molecular Assay Negative by naat SARS CoV-2 RNA Rapid MARGARET Negative Imaging Imaging: EXAM: CHEST RADIOGRAPH TECHNIQUE: Single frontal chest radiograph. HISTORY: Chest pain and shortness of breath. COMPARISON: 06/20/2025 FINDINGS: Interval development of mild pneumonia versus atelectasis of the right base. No pleural effusion or pneumothorax is seen. Heart size is normal. No acute displaced rib fractures are identified. IMPRESSION: 1. Mild pneumonia versus atelectasis of the right base. Follow up radiographs are recommended to show resolution. Review Statement Review Statement: I have independently reviewed and interpreted the labs/EKGs/imaging that were ordered by the ER provider. I have reviewed all outside records that are laura ilable currently in our EMR including imaging/notes/labs from previous visits. Plan Plan: 1. UTI - urine culture pending, Rocephin 1G IVPB Q24H 2. Pneumonia vs Atelectasis R lung base - white count normal, no reports of fever, likely viral in nature, asymptomatic 3. DM2 - uncontrolled, 08/2025 A1C 8.6, continue home lantus regimen, accuchecks qid with mild ssi, ADA diet 4. HTN - uncontrolled, had not taken home medications today, resume all home medications, will adjust if needed 5. HLD - chronc, continue home medications 6. Weakness/Frequent Falls - PT/OT consult DVT Prophylaxis: Ambulation Time Spent: Greater than 80 minutes spent with patient, 50% of the time spent with this patient was devoted to counseling and coordination of care. Advanced Care Plannin minutes spent discussing advance care planning. Disposition: Admit to: Med/Surg Observation DNR Discussed Plan of Care with Dr. Kellie Urias. Medications Medication Orders: Medications Ordered Category Date Time Status 0.9 % Sodium Chloride [Saline Flush] Meds 10/07/25 09:44 Active 1 syr IVF PRN PRN Acetaminophen [Tylenol] Meds 10/07/25 13:43 Active 650 mg PO Q4H PRN Albuterol Sulfate [Ventolin Hfa] Meds 10/07/25 15:32 Active 2 puff IH 4XD PRN WHEEZING Wheezing Atorvastatin Calcium [Lipitor] Meds 10/07/25 15:35 Active 80 mg PO DAILY Ceftriaxone/D5w 1 gm Premix [Rocephin 1 gm/50 ml D5w] Meds 10/07/25 14:00 Act agustin 1 gm in 50 ml IV DAILY Cyclobenzaprine HCl [Flexeril] Meds 10/07/25 15:32 Active 5 - 10 mg PO 1-3XD PRN SPA Spasms Ferrous Sulfate Meds 10/08/25 09:00 Active 324 mg PO DAILY Fluoxetine HCl [Prozac] Meds 10/07/25 16:00 Active 40 mg PO DAILY Fluticasone Propionate [Flonase] Meds 10/07/25 21:00 Active 1 spray JAMLA Q12HR Insulin Glargine,Hum.rec.anlog [Lantus] Meds 10/07/25 21:00 Active 30 unit SUBCUT 2XD Insulin Lispro [Humalog (10 ml Vial)] Meds 10/07/25 15:45 Hold See Dose Instructions SUBCUT TID PRN Insulin Regular, Human [Humulin R (10Ml)] Meds 10/07/25 13:52 Active See Protocol SUBCUT PRN PRN Lisinopril [Zestril] Meds 10/08/25 09:00 Active 40 mg PO DAILY Metoprolol Succinate [Toprol Xl] Meds 10/07/25 15:40 Active 100 mg PO DAILY Pantoprazole Sodium [Protonix] Meds 10/07/25 16:00 Active 40 mg PO QDAC2 paricalcitol Meds 10/08/25 09:00 Active 1 mcg PO DAILY peg 400-propylene glycol (PF) [Systane Hydration (PF)] Meds 10/07/25 15:32 Active 1 drop EACHEYE 2-4XD PRN DE Dry Eye
[2025-10-08 05:37] LABS: IMMATURE GRANULOCYTE # (AUTO) 0.0 (0.0-1.0); IMMATURE GRANULOCYTE % (AUTO) 0.5 % (0.0-5.0); RDW COEFFICIENT OF VARIATION 13.2 % (11.6-14.8)
[2025-10-08 05:39] LABS: CREATININE 1.4 mg/dL (0.60-1.30)
[2025-10-08] MEDS ORDERED: NON-FORMULARY MEDICATION (Ferrous Sulfate [Ferosul] 325 mg (65 mg iron) tablet) PO SCH (09:00)
[2025-10-08] MEDS: ZESTRIL PO SCH (09:36)
[2025-10-08] MEDS: FERROUS SULFATE PO SCH (09:36)
--- NOTE | 2025-10-08 09:47 | PCM.PROG ---
Date/Time Seen Date Seen by Provider: 10/08/25 Time Seen by Provider: 09:00 Provider Provider: MASON BAILEY, [facility] Chief Complaint Chief Complaint: HYPERGLYCEMIA,RECURRENT FALLS,DECONDITIONING Subjective Subjective: Continues to have burning and foul odor in urine. Weakness remains the same. Ambulating with 1 assist with charted unsteady gait. Discussed need for further therapy upon returning home. Objective Appearance: Positive No Apparent Distress and Alert and Oriented x3 Chest/Lungs: Positive Symmetrical With Equal Breath Sounds, Clear to Auscultation Bilaterally and Good Air Movement all 4 Lung Juarez; Negative Rales, Rhonci or Wheezes Heart: Positive RRR and Pulses Normal GI/: Positive Soft, Nontender, Bowel Sounds Normal and No Distention Musculoskeletal: Positive Other (chronic, +2 nonpitting edema to BLE) Neurological: Positive Sensation Intact, Motor intact, Reflexes Intact, Alert, Oriented and Other (generalized weakness) Vital Signs Vital Signs: Vital Signs: Last 24 Hours 10/07/25 13:49 10/07/25 14:00 10/07/25 14:00 Temperature 97 F L Temperature Source Temporal Artery Scan Pulse Rate 83 83 Respiratory Rate 18 15 Blood Pressure 177/89 H Blood Pressure Mean Blood Pressure Left Arm 177/102 Blood Pressure Location Blood Pressure Position Sitting O2 Sat by Pulse Oximetry 99 100 Oxygen Delivery Method Room Air Room Air Height 5 ft 4 in Weight 118.4 kg Telemetry Type Telemetry Monitoring Telemetry Heart Rate Telemetry SPO2 EKG WI Interval EKG QRS Interval Telemetry Strip Reading 10/07/25 14:00 10/07/25 14:11 10/07/25 15:00 Temperature Temperature Source Pulse Rate Respiratory Rate Blood Pressure Blood Pressure Mean Blood Pressure Left Arm Blood Pressure Location Blood Pressure Position O2 Sat by Pulse Oximetry Oxygen Delivery Method Room Air Room Air Height Weight Telemetry Type Bedside Monitor Telemetry Monitoring Started Telemetry Heart Rate 83 Telemetry SPO2 99 EKG WI Interval 0.20 EKG QRS Interval 0.06 Telemetry Strip Reading SR 10/07/25 16:00 10/07/25 16:20 10/07/25 18:00 Temperature Temperature Source Pulse Rate Respiratory Rate Blood Pressure Blood Pressure Mean Blood Pressure Left Arm Blood Pressure Location Blood Pressure Position O2 Sat by Pulse Oximetry Oxygen Delivery Method Room Air Room Air Room Air Height Weight Telemetry Type Telemetry Monitoring Telemetry Heart Rate Telemetry SPO2 EKG WI Interval EKG QRS Interval Telemetry Strip Reading 10/07/25 18:00 10/07/25 19:00 10/07/25 19:00 Temperature 98.2 F Temperature Source Oral Pulse Rate 73 Respiratory Rate 12 Blood Pressure 172/81 H Blood Pressure Mean 111 Blood Pressure Left Arm Blood Pressure Location Left Arm Blood Pressure Position O2 Sat by Pulse Oximetry 97 Oxygen Delivery Method Room Air Room Air Height Weight Telemetry Type Telemetry Monitoring Continues Telemetry Heart Rate Telemetry SPO2 EKG WI Interval EKG QRS Interval Telemetry Strip Reading 10/07/25 20:00 10/07/25 20:00 10/07/25 20:58 Temperature Temperature Source Pulse Rate Respiratory Rate Blood Pressure Blood Pressure Mean Blood Pressure Left Arm Blood Pressure Location Blood Pressure Position O2 Sat by Pulse Oximetry Oxygen Delivery Method Room Air Room Air Room Air Height Weight Telemetry Type Telemetry Monitoring Telemetry Heart Rate Telemetry SPO2 EKG WI Interval EKG QRS Interval Telemetry Strip Reading 10/07/25 22:00 10/07/25 22:00 10/07/25 22:55 Temperature 98.6 F Temperature Source Oral Pulse Rate 65 Respiratory Rate 16 Blood Pressure 168/69 H Blood Pressure Mean 102 Blood Pressure Left Arm Blood Pressure Location Left Arm Blood Pressure Position Supine O2 Sat by Pulse Oximetry 97 Oxygen Delivery Method Room Air Room Air Room Air Height Weight Telemetry Type Telemetry Monitoring Telemetry Heart Rate Telemetry SPO2 EKG WI Interval EKG QRS Interval Telemetry Strip Reading 10/08/25 00:00 10/08/25 01:00 10/08/25 01:00 Temperature Temperature Source Pulse Rate Respiratory Rate Blood Pressure Blood Pressure Mean Blood Pressure Left Arm Blood Pressure Location Blood Pressure Position O2 Sat by Pulse Oximetry Oxygen Delivery Method Room Air Room Air Height Weight Telemetry Type Bedside Monitor Telemetry Monitoring Continues Telemetry Heart Rate 63 Telemetry SPO2 95 EKG WI Interval 0.25 H EKG QRS Interval 0.07 Telemetry Strip Reading SR WITH 1ST DEGREE AVB 10/08/25 02:00 10/08/25 02:00 10/08/25 02:55 Temperature 97.3 F L Temperature Source Tympanic Pulse Rate 63 Respiratory Rate 14 Blood Pressure 139/78 Blood Pressure Mean 98 Blood Pressure Left Arm Blood Pressure Location Left Arm Blood Pressure Position O2 Sat by Pulse Oximetry 96 Oxygen Delivery Method Room Air Room Air Room Air Height Weight Telemetry Type Telemetry Monitoring Telemetry Heart Rate Telemetry SPO2 EKG WI Interval EKG QRS Interval Telemetry Strip Reading 10/08/25 04:00 10/08/25 05:00 10/08/25 05:32 Temperature 97.0 F L Temperature Source Tympanic Pulse Rate 64 Respiratory Rate 16 Blood Pressure 160/83 H Blood Pressure Mean 108 Blood Pressure Left Arm Blood Pressure Location Left Arm Blood Pressure Position Supine O2 Sat by Pulse Oximetry 97 Oxygen Delivery Method Room Air Room Air Room Air Height Weight Telemetry Type Telemetry Monitoring Telemetry Heart Rate Telemetry SPO2 EKG WI Interval EKG QRS Interval Telemetry Strip Reading 10/08/25 05:39 10/08/25 07:00 10/08/25 07:00 Temperature Temperature Source Pulse Rate Respiratory Rate Blood Pressure Blood Pressure Mean Blood Pressure Left Arm Blood Pressure Location Blood Pressure Position O2 Sat by Pulse Oximetry Oxygen Delivery Method Room Air Room Air Height Weight Telemetry Type Bedside Monitor Telemetry Monitoring Continues Telemetry Heart Rate 62 Telemetry SPO2 97 EKG WI Interval 0.22 H EKG QRS Interval 0.07 Telemetry Strip Reading SR W/ 1ST DEGREE AVB 10/08/25 08:00 Temperature Temperature Source Pulse Rate Respiratory Rate Blood Pressure Blood Pressure Mean Blood Pressure Left Arm Blood Pressure Location Blood Pressure Position O2 Sat by Pulse Oximetry Oxygen Delivery Method Room Air Height Weight Telemetry Type Telemetry Monitoring Telemetry Heart Rate Telemetry SPO2 EKG WI Interval EKG QRS Interval Telemetry Strip Reading Lab Results Lab Results: Lab Results: Last 24 Hours 10/08/25 10/07/25 10/07/25 05:08 10:05 09:40 WBC 5.75 5.94 RBC 4.05 L 4.55 Hgb 12.4 14.0 Hct 38.2 42.9 MCV 94.3 94.3 MCH 30.6 30.8 MCHC 32.5 32.6 RDW Coeff of Kait 13.2 13.0 Plt Count 242 223 Immature Gran % (Auto) 0.5 0.5 Neut % (Auto) 53.0 61.6 Lymph % (Auto) 34.3 29.5 Evangeline % (Auto) 8.2 5.4 Eos % (Auto) 3.0 2.0 Baso % (Auto) 1.0 1.0 Neut # (Auto) 3.1 3.7 Lymph # (Auto) 2.0 1.8 Evangeline # (Auto) 0.5 0.3 L Eos # (Auto) 0.2 0.1 Baso # (Auto) 0.1 0.1 Immature Gran # (Auto) 0.0 0.0 PT 9.7 INR 0.93 APTT 22.3 L Sodium 134.2 L 132.7 L Potassium 4.35 4.54 Chloride 107.0 102.5 Carbon Dioxide 22.4 21.9 L Anion Gap 9.15 12.84 BUN 30.1 H 37.6 H Creatinine 1.40 H 1.38 H Estimated GFR (MDRD) 37.00 38.00 BUN/Creatinine Ratio 21.50 27.24 Glucose 263.1 H D 412.0 H Calcium 9.79 9.96 Magnesium 2.09 Total Bilirubin 0.67 1.00 AST 16.8 15.2 ALT 11.9 14.5 Alkaline Phosphatase 173.7 H D 218.8 H Total Creatine Kinase < 20.0 L Troponin I < 0.012 NT-Pro-B Natriuret Pep 100 Total Protein 6.12 L 7.52 Albumin 3.19 L 3.90 Globulin 2.93 3.62 Albumin/Globulin Ratio 1.08 1.07 TSH 4.040 Urine Color Light Urine Clarity Clear Urine pH 6.0 Ur Specific [place] 1.025 Urine Protein 3+ H Urine Glucose (UA) 3+ H Urine Ketones 1+ H Urine Blood 1+ H Urine Nitrite Negative Urine Bilirubin Negative Urine Urobilinogen 0.2 Ur Leukocyte Esterase Negative Urine Microscopic RBC 10-20 Urine Microscopic WBC 5-10 Ur Squamous Epith Cells 5-10 Ur Renal Epithelial Cell 5-10 Triple Phos Crystals Trace Urine Bacteria 1+ Granular Casts 0-2 Other Casts 2-5 Urine Opiates Screen Negative Ur Oxycodone Screen Negative Urine Methadone Screen Negative Ur Barbiturates Screen Negative U Tricyclic Antidepress Negative Ur Phencyclidine Scrn Negative Ur Amphetamine Screen Negative U Methamphetamines Scrn Negative U Benzodiazepines Scrn Negative Urine Cocaine Screen Negative U Cannabinoids Screen Negative Influ A Molecular Assay Negative by naat Influ B Molecular Assay Negative by naat SARS CoV-2 RNA Rapid MARGARET Negative Additional Comments Additional Comments: I have independently reviewed and interpreted the labs/EKGs/imaging ordered during this hospital stay. I have reviewed outside records that are available in our EMR that pertain to medical stay including imaging/notes/labs from previous visits. Active Medications Active Medications: Medications Generic Name Dose Route Start Last Admin Trade Name Freq PRN Reason Stop Dose Admin Acetaminophen 650 mg 10/07/25 13:43 10/07/25 21:19 Acetaminophen 325 Mg Tablet PO 650 mg Q4H PRN Administration Mild Pain Albuterol Sulfate 2 puff 10/07/25 15:32 Albuterol Sulfate 8 Gm Inhaler IH 4XD PRN Wheezing Atorvastatin Calcium 80 mg 10/07/25 15:35 10/07/25 15:59 Atorvastatin Calcium 20 Mg Tablet PO 80 mg DAILY MICHELE Administration Cyclobenzaprine HCl 5 - 10 mg 10/07/25 15:32 10/07/25 16:00 Cyclobenzaprine Hcl 10 Mg Tablet PO 10 mg 1-3XD PRN Administration Spasms Ferrous Sulfate 324 mg 10/08/25 09:00 Ferrous Sulfate 324 Mg Tablet.Dr PO DAILY MICHELE Fluoxetine HCl 40 mg 10/07/25 16:00 10/07/25 16:00 Fluoxetine Hcl 20 Mg Capsule PO 40 mg DAILY MICHELE Administration Fluticasone Propionate 1 spray 10/07/25 21:00 10/07/25 21:19 Fluticasone Propionate 16 Gm Nasal [place] JAMAL 1 spray Q12HR MICHELE Administration CEFTRIAXONE/D5W 1 GM PREMIX 1 gm in 50 mls @ 100 mls/hr 10/07/25 14:00 10/07/25 14:58 Rocephin 1 Gm/50 Ml D5w IV 10/10/25 13:59 100 mls/hr DAILY MICHELE Administration Insulin Glargine 30 unit 10/07/25 21:00 10/07/25 21:25 Insulin Glargine,Hum.Rec.Anlog 100 Units/Ml SUBCUT 30 unit 2XD MICHELE Administration Insulin Human Lispro 0 unit 10/07/25 15:45 Insulin Lispro 100 Unit/Ml (10 Ml Vial) SUBCUT On Hold: 10/07/25 17:04 TID PRN HYPERGLYCEMIA PER SLIDING SCAL Insulin Human Regular 0 unit 10/07/25 13:52 10/08/25 06:11 Insulin Regular, Human 100 Unit/Ml (10ml) Vial SUBCUT 4 unit PRN PRN Administration Hyperglycemia Protocol Lisinopril 40 mg 10/08/25 09:00 Lisinopril 40 Mg Tablet PO DAILY MICHEEL Metoprolol Succinate 100 mg 10/07/25 15:40 10/07/25 16:00 Metoprolol Succinate 50 Mg Tab.Er.24h PO 100 mg DAILY MICHELE Administration Non-Formulary Medication 1 mcg 10/08/25 09:00 Paricalcitol PO DAILY MICHELE Non-Formulary Medication 1 drop 10/07/25 15:32 Peg 400-Propylene Glycol (Pf) [Systane Hydration (Pf)] EACHEYE 2-4XD PRN Dry Eye Pantoprazole Sodium 40 mg 10/07/25 16:00 10/08/25 05:37 Pantoprazole Sodium 40 Mg Tablet.Dr PO 40 mg QDAC2 MICHELE Administration Sodium Chloride 1 syr 10/07/25 09:44 10/08/25 05:38 0.9% Sodium Chloride 10 Ml Disp.Syrin IVF 1 syr PRN PRN Administration To flush IV Plan Plan: 1. UTI - urine culture showing mixed growth a likely contaminate, will repeat specimen due to continued symptoms, continue Rocephin 1G IVPB Q24H 2. Pneumonia vs Atelectasis R lung base - white count normal, no reports of fever, likely viral in nature, asymptomatic 3. DM2 - uncontrolled, 08/2025 A1C 8.6, continue home lantus regimen, accuchecks qid with mild ssi, ADA diet 4. HTN - uncontrolled, had not taken home medications today, resume all home medications, will adjust if needed 5. HLD - chronc, continue home medications 6. Weakness/Frequent Falls - PT/OT consult DVT Prophylaxis: Ambulation Review Statement Review Statement: I have personally discussed and reviewed the patient's visit/currently labs/imaging/decision making with Dr. Urias, my supervising attending. Greater that 50 minutes spent with patient, 50% of the time spent with this patient was devoted to counseling and coordination of care.
[2025-10-08 10:55] LABS: GLUCOSE, URINE (UA) 2+ (NEGATIVE); LEUKOCYTE ESTERASE ,URINE Negative (NEGATIVE); URINE, BLOOD Trace-intact (NEGATIVE)
[2025-10-08 10:59] LABS: HYALINE CASTS, URINE 0-2 (NOT PRESENT); SQUAMOUS EPITHELIAL CELL,UR 0-2 (0-5)
[2025-10-09 04:54] LABS: IMMATURE GRANULOCYTE # (AUTO) 0.0 (0.0-1.0); IMMATURE GRANULOCYTE % (AUTO) 0.5 % (0.0-5.0); RDW COEFFICIENT OF VARIATION 13.1 % (11.6-14.8)
[2025-10-09 05:08] LABS: CREATININE 1.54 mg/dL (0.60-1.30)
[2025-10-09 05:20] VITALS: RESP 12
--- NOTE | 2025-10-09 08:54 | DCSUM ---
Admission Date Admission Date: 10/07/25 Discharge Date Discharge Date: 10/09/25 Admission Diagnosis Admission Diagnosis: 1. UTI 2. Pneumonia vs Atelectasis R lung base 3. DM2 4. HTN 5. HLD 6. Weakness/Frequent Falls Discharge Diagnosis Discharge Diagnosis: 1. UTI - Ruled out, urine culture suspected contaminate, repeat UA negative. 2. Pneumonia vs Atelectasis R lung base - white count normal, no reports of fever, likely viral in nature, asymptomatic 3. DM2 - chronic, stable 4. HTN - Improved during stay, resumed home medications 5. HLD - chronc, stable 6. Weakness/Frequent Falls - PT/OT ordered outpatient Hospital Provider Hospital Provider: MASON BAILEY, [facility] Primary Care Physician Primary Care Physician: DUSTIN ESCOBAR APRN,LIZANDRO Summary of History and Physical Summary of History and Physical: 70 yo female with pmh of DM2, CKD, Chronic pain, HTN, hyperparathyroidism, and depression presented to the ER following a fall. Patient states she feels as if she is getting progressively weaker over the last 1 month. Fell 3 times last week. Denies loss of consciousness when she has these episodes. Has a homemaker to help with groceries and tidying the home but has not done PT/OT in at least 2-3 years. Denies any fever, chills, cough, sob, chest pain, palpitations, dizziness. Does endorse issues with incontinence that she hasn't had until recently and foul smell to her urine. UA suspicious for UTI. This provider assisted patient to bedside commode and required significant assistance to get into and out of the bed. Admitted to med/surg observation. Hospital Course Subjective: During stay, patient was initially treated for a UTI with rocephin 1G Q24H. Initial urine culture showed mixed growth and likely contaminant. Repeat UA completed yesterday and not suspicious for infection. Did not reflex to culture. Rocephin stopped. Ambulating well in room with stand by assist. PT consult completed and feel patient would benefit from further therapy. Outpatient order sent. Patient also has homemaker services that the social service worker contacted to increase the patient's hours of need for further help in the home. Patient did not report any dizziness or any other complaints. Does have some soreness to the L ribs today from the fall. Mild bruising present. Discussed ibuprofen and tylenol for pain. Encouraged to cough and deep breathe to prevent pneumonia. Appearance: Pleasant, No Apparent Distress and Alert HEENT: MMM, Supple and No JVD CVS: No Murmur, No Rubs and No Gallop Abdomen: Soft, Non-Tender and No Distention Respiratory: No Dyspnea Extremities: Other (chronic, nonpitting edema to ble) Vital Signs: Most Recent Vital Signs Temperature 96.8 F L 10/09/25 05:19 Temperature Source Temporal Artery Scan 10/09/25 05:19 Temperature Source Temporal Artery Scan 10/07/25 09:41 Pulse Rate 60 10/09/25 05:19 Respiratory Rate 12 10/09/25 05:19 Blood Pressure 153/80 H 10/09/25 05:19 Blood Pressure Mean 104 10/09/25 05:19 Blood Pressure Left Arm 177/102 10/07/25 14:00 Blood Pressure Location Right Arm 10/09/25 05:19 Blood Pressure Position Supine 10/09/25 05:19 O2 Sat by Pulse Oximetry 97 10/09/25 05:19 Oxygen Delivery Method Room Air 10/09/25 08:00 Height 5 ft 4 in 10/07/25 14:00 Weight 118.4 kg 10/07/25 14:00 Telemetry Type Bedside Monitor 10/09/25 07:00 Telemetry Monitoring Continues 10/09/25 07:00 Telemetry Heart Rate 58 L 10/09/25 07:00 Telemetry SPO2 98 10/09/25 07:00 EKG MO Interval 0.24 H 10/09/25 07:00 EKG QRS Interval 0.08 10/09/25 07:00 Telemetry Strip Reading SR w/ 1st Degree AVB 10/09/25 07:00 Imaging: EXAMINATION: HEAD CT WITHOUT CONTRAST HISTORY: Recurring falls. TECHNIQUE: Noncontrast CT of the brain was performed with images acquired from skull base to vertex. 2-D coronal and sagittal reformatted images were obtained from the axial source images. Contrast Dose: None. CT Dose Reduction Techniques Performed: Yes. COMPARISON: 06/20/2025 FINDINGS: Stable mild atrophy. No intracranial hemorrhage or significant extra-axial fluid collection. Stable mild nonspecific low-density changes of the periventricular white matter. Buitrago white differentiation is preserved. Stable 1.1 cm mildly hyperdense partially calcified left frontal extra-axial lesion at level of the central semiovale anteriorly, and 0.8 cm right parietal extra-axial calcification at the same level, probably meningiomas. No midline shift or significant mass effect. No hydrocephalus. Right cataract surgery, again noted. The visualized mastoid air cells and paranasal sinuses are clear. No visible skull fracture. IMPRESSION: 1. No acute intracranial findings. 2. Stable mild atrophy and chronic microvascular ischemic changes. 3. Stable probable left frontal and right parietal meningiomas. EXAM: CHEST RADIOGRAPH TECHNIQUE: Single frontal chest radiograph. HISTORY: Chest pain and shortness of breath. COMPARISON: 06/20/2025 FINDINGS: Interval development of mild pneumonia versus atelectasis of the right base. No pleural effusion or pneumothorax is seen. Heart size is normal. No acute displaced rib fractures are identified. IMPRESSION: 1. Mild pneumonia versus atelectasis of the right base. Follow up radiographs are recommended to show resolution. Lab Results Last 24 Hours: 10/09/25 10/08/25 04:41 10:40 WBC 6.39 RBC 4.00 L Hgb 12.2 Hct 37.7 MCV 94.3 MCH 30.5 MCHC 32.4 RDW Coeff of Kait 13.1 Plt Count 232 Immature Gran % (Auto) 0.5 Neut % (Auto) 53.5 Lymph % (Auto) 34.6 [place] % (Auto) 7.8 Eos % (Auto) 2.5 Baso % (Auto) 1.1 Neut # (Auto) 3.4 Lymph # (Auto) 2.2 [place] # (Auto) 0.5 Eos # (Auto) 0.2 Baso # (Auto) 0.1 Immature Gran # (Auto) 0.0 Sodium 133.0 L Potassium 4.23 Chloride 106.0 Carbon Dioxide 23.4 Anion Gap 7.83 BUN 28.7 H Creatinine 1.54 H Estimated GFR (MDRD) 33.00 BUN/Creatinine Ratio 18.63 Glucose 268.2 H Calcium 9.49 Total Bilirubin 0.75 AST 19.2 ALT 12.4 Alkaline Phosphatase 158.6 H Total Protein 6.10 L Albumin 3.15 L Globulin 2.95 Albumin/Globulin Ratio 1.06 Urine Color Yellow Urine Clarity Clear Urine pH 5.5 Ur Specific [place] 1.025 Urine Protein 3+ H Urine Glucose (UA) 2+ H Urine Ketones Negative Urine Blood Trace-intact H Urine Nitrite Negative Urine Bilirubin Negative Urine Urobilinogen 0.2 Ur Leukocyte Esterase Negative Urine Microscopic RBC 5-10 Ur Squamous Epith Cells 0-2 Hyaline Casts 0-2 Discharge Instructions Discharge Planning: Discharge Planning > 40 minutes If patient is discharged with left ventricular systolic dysfunction: na Discharged with a beta nader? [] If no, why not? [] Discharged with an rebekah/arb? [] If no, why not? [] Discharge Medications: Medications at Discharge (Home Meds & RX) blood-glucose meter (PolyRemedy Ultra2 Meter) #1 ea 04/29/24 pantoprazole 40 mg tablet,delayed release (Protonix) 40 mg PO QDAY 12/11/24 blood-glucose sensor (Plyfe G7 Sensor device) #1 ea 03/11/25 blood-glucose,cleaning porter,cont (Dexcom G7 Hr Business Partner) #1 ea 03/11/25 cholecalciferol (vitamin D3) 1,250 mcg (50,000 unit) capsule 1,250 mcg PO QWEEK #5 caps 05/06/25 albuterol sulfate 90 mcg/actuation aerosol inhaler 2 puff inhalation 4XD PRN for wheezing #6.7 ea 06/07/25 lancets 30 gauge (TMJ HealthTouch Delica Plus Lancet) #200 ea 06/10/25 insulin lispro 100 unit/mL subcutaneous pen (Humalog KwikPen (U-100) Insulin) See Rx Instructions .Route .COMPLEX #15 mL 08/05/25 fluoxetine 40 mg capsule 40 mg PO QDAY #90 caps 08/06/25 peg 400 0.4 %-propylene glycol (PF) 0.3 % eye drops (Systane Hydration (PF)) 1 drp BOTHEYES BID-QID PRN dry eye(s) 08/06/25 insulin glargine 100 unit/mL (3 mL) subcutaneous pen (Lantus Solostar U-100 Insulin) 30 unit (0.3 mL) subcut 2XD 30 days #30 ea 10/01/25 atorvastatin 80 mg tablet 80 mg PO DAILY #30 tabs 10/06/25 blood sugar diagnostic (PressLabsuch Ultra Test strips) #100 ea 10/06/25 cyclobenzaprine 5 mg tablet 5 - 10 mg (1 - 2 x 5 mg) PO 1-3XD PRN for muscle spasm #60 tabs 10/06/25 ferrous sulfate 325 mg (65 mg iron) tablet (FeroSul) 325 mg PO DAILY #30 tabs 10/06/25 fluticasone propionate 50 mcg/actuation nasal spray,suspension 1 spray BOTHNARES Q12HR #16 ea 10/06/25 lisinopril 40 mg tablet 40 mg PO DAILY #30 tabs 10/06/25 metoprolol succinate 100 mg tablet,extended release 24 hr 100 mg PO DAILY #30 tabs 10/06/25 paricalcitol 1 mcg capsule 1 mcg PO DAILY #30 caps 10/06/25 ergocalciferol (vitamin D2) 1,250 mcg (50,000 unit) capsule 1,250 mcg PO WEEKLY 10/07/25 pen needle, diabetic 31 gauge x 3/16" (TRUEplus Pen Needle) #100 ea 10/08/25 Discharge Plan Discharge Discharge Orders: Discharge Patient (ONCE); Ordered 10/09/25 Ordered By: GIUSEPPE BAZAN Activity Restrictions/Additional Instructions: Diagnosis: Weakness, Fall Diet: Diabetic Activity as tolerated. Start Physical and Occupational therapy at the outpatient clinic. Medications: No changes Follow-up with your primary care provider. Instructions: Fall Prevention (GEN), Physical Activity for Older Adults (GEN) Patient Disposition: HOME SELF-CARE Prescriptions: Continued (DME) blood-glucose meter [PressLabsuch Ultra2 Meter] Misc See Rx Instructions .ROUTE Qty: 1 0RF Rx Instructions: As directed (DME) Dexcom G7 Sensor Device See Rx Instructions .ROUTE Qty: 1 5RF Rx Instructions: As directed (DME) Dexcom G7 Hr Business Partner Misc See Rx Instructions .ROUTE Qty: 1 0RF Rx Instructions: As directed cholecalciferol (vitamin D3) 1,250 mcg (50,000 unit) capsule 1,250 mcg PO QWEEK Qty: 5 2RF albuterol sulfate 90 mcg/actuation HFA aerosol inhaler 2 puff inhalation 4XD PRN (Reason: for wheezing) Qty: 6.7 5RF (DME) lancets [OneTouch Delica Plus Lancet] 30 gauge misc See Rx Instructions .ROUTE .COMPLEX Qty: 200 2RF Dose Instruction: USE DIRECTED FOUR TIMES DAILY Rx Instructions: USE DIRECTED FOUR TIMES DAILY insulin lispro [Humalog KwikPen Insulin] 100 unit/mL insulin pen See Rx Instructions .ROUTE .COMPLEX Qty: 15 2RF Dose Instruction: INJECT 15 UNIT (0.15 ML) SUBCUTANEOUSLY THREE TIMES A DAY NEEDED FOR PER SLIDING SCALE INSTRUCTIONS BELOW. FOR 1 MONTH; GLUCOSE 60-150-0 UNITS, 151-200-3 UNITS; 201-250=5 UNITS; 251-300=8 UNITS; 351-400=12 UNITS; > 400= 15 UNITS Rx Instructions: INJECT 15 UNIT (0.15 ML) SUBCUTANEOUSLY THREE TIMES A DAY NEEDED FOR PER SLIDING SCALE INSTRUCTIONS BELOW. FOR 1 MONTH; GLUCOSE 60-150-0 UNITS, 151-200-3 UNITS; 201-250=5 UNITS; 251-300=8 UNITS; 351-400=12 UNITS; > 400= 15 UNITS metoprolol succinate 100 mg tablet extended release 24 hr 100 mg PO DAILY Qty: 30 2RF lisinopril 40 mg tablet 40 mg PO DAILY Qty: 30 2RF ferrous sulfate [FeroSul] 325 mg (65 mg iron) tablet 325 mg PO DAILY Qty: 30 2RF fluticasone propionate 50 mcg/actuation spray,suspension 1 spray BOTHNARES Q12HR Qty: 16 2RF paricalcitol 1 mcg capsule 1 mcg PO DAILY Qty: 30 2RF cyclobenzaprine 5 mg tablet 5 - 10 mg PO 1-3XD PRN (Reason: for muscle spasm) Qty: 60 2RF atorvastatin 80 mg tablet 80 mg PO DAILY Qty: 30 2RF (DME) OneTouch Ultra Test Strip See Rx Instructions .ROUTE .COMPLEX Qty: 100 5RF Dose Instruction: FOR E11.65 - TYPE 2 DIABETES MELLITUS WITH HYPERGLYCE; MONITOR BLOOD SUGAR FOUR TIMES DAILY Rx Instructions: FOR E11.65 - TYPE 2 DIABETES MELLITUS WITH HYPERGLYCE; MONITOR BLOOD SUGAR FOUR TIMES DAILY (DME) pen needle, diabetic [TRUEplus Pen Needle] 31 gauge x 3/16" needle See Rx Instructions .ROUTE .COMPLEX Qty: 100 2RF Dose Instruction: INJECT WITH LANTUS AND HUMALOG 5 TIMES DAILY Rx Instructions: INJECT WITH LANTUS AND HUMALOG 5 TIMES DAILY ergocalciferol (vitamin D2) 1,250 mcg (50,000 unit) capsule 1,250 mcg PO WEEKLY pantoprazole [Protonix] 40 mg tablet,delayed release (DR/EC) 40 mg PO QDAY Systane Hydration (PF) 0.4-0.3 % drops 1 drp BOTHEYES BID-QID PRN (Reason: dry eye(s)) fluoxetine 40 mg capsule 40 mg PO QDAY Qty: 90 0RF insulin glargine [Lantus Solostar U-100 Insulin] 100 unit/mL (3 mL) insulin pen 30 unit subcut 2XD 30 Days Qty: 30 2RF Rx Instructions: taking lantus 30 units bid Did you review [place] BUCKLE ATTACHING MACHINE OPERATOR for ALL controlled substances?: No Discussed opioids are addictive and Narcan is available by prescription or from pharmacy.: No Condition: Stable Referrals: LANA WEN MD [STAFF PHYSICIAN, Family Practice] - 10/14/25 10:30 am
[2025-10-09 10:17] VITALS: BP 158/83; PULSE 62; TEMP 97.6
== END 2025-10-09 11:25 | disposition home or self-care (01) ==
LOC: ED 09:30 → SCU 09:30
PROVIDERS: ADMIT Hospitalist; ATTEND Nurse Practitioner Family